=== PATIENT | male | born 1965 | race Caucasian/White ===

== ENCOUNTER 2018-07-25 08:19 | Emergency (ER) | payer MEDICARE ==
[2018-07-25] MEDS ORDERED: CLEOCIN300 MG PO (08:37)
[2018-07-25] MEDS ORDERED: TORADOL PO (08:37)
[2018-07-25 08:54] VITALS: BP 141/93
== END 2018-07-25 08:55 | disposition home or self-care (01) ==
LOC: ED 08:19
DX: L02.12 Furuncle of neck (principal); E11.9 Type 2 diabetes mellitus without complications; B95.61 Methicillin susceptible Staphylococcus aureus infection as the cause of diseases classified elsewhere

== ENCOUNTER 2019-12-04 15:53 | Emergency (ER) | payer MEDICARE ==
[~2019-12-04 15:53] MED LIST: CLEOCIN300 MG PO; TORADOL PO
[2019-12-04 15:56] VITALS: BP 127/88
[2019-12-04] MEDS ORDERED: KEFLEX500 M1 PO (16:24)
== END 2019-12-04 16:43 | disposition left against medical advice (07) ==
LOC: ED 15:53
DX: S90.425A Blister (nonthermal), left lesser toe(s), initial encounter (principal); L03.032 Cellulitis of left toe; E11.40 Type 2 diabetes mellitus with diabetic neuropathy, unspecified; X58.XXXA Exposure to other specified factors, initial encounter; Z91.19 Patient's noncompliance with other medical treatment and regimen

== ENCOUNTER 2020-01-16 | Emergency (ER) | payer MEDICARE ==
[~2020-01-16] MED LIST changes: +KEFLEX500 M1 PO
[2020-01-16 22:22] LABS: HEMATOCRIT 32.1 % (39.0-50.0); HEMOGLOBIN 9.9 g/dl (14.0-18.0); IMMATURE GRANULOCYTES 0.9 % (0.0-5.0); MEAN CELL VOLUME 77.3 fL CALC (80.0-100.0); MEAN CORPUSCULAR HGB 23.9 pG CALC (26.0-32.0); MEAN CORPUSCULAR HGB CONC 30.8 g/dL CAL (32.0-36.0); NEUT# 7.51 thou/uL (1.82-7.42); RED BLOOD COUNT 4.15 mill/uL (4.70-6.10); RED CELL DISTRI WIDTH 15.3 % (11.5-15.5)
[2020-01-16 22:28] LABS: URINE BILIRUBIN - DIPSTICK NEGATIVE (NEGATIVE); URINE BLOOD DIPSTICK SMALL (NEGATIVE); URINE COLOR YELLOW; URINE GLUCOSE - DIPSTICK >=1000 mg/dL (NEGATIVE); URINE KETONE NEGATIVE (NEGATIVE); URINE LEUK ESTERASE TRACE (NEGATIVE); URINE NITRITE - DIPSTICK NEGATIVE (Negative); URINE PROTEIN - DIPSTICK 100 mg/dL (NEG-TRACE); URINE UROBILINOGEN - DIPSTICK 0.2 E.U./dL (0.2)
[2020-01-16 22:31] LABS: BARBITURATES NEGATIVE (NEGATIVE); COCAINE NEGATIVE (NEGATIVE); METHADONE NEGATIVE (NEGATIVE); OXCYCODONE NEGATIVE (NEGATIVE); TETRAHYDROCANNABIONOL NEGATIVE (NEGATIVE); TRICYLIC ANTIDEPRESSANTS NEGATIVE (NEGATIVE)
[2020-01-16 22:44] LABS: URINE WBC 20-50 WBC/hpf (0-5)
[2020-01-16 22:47] LABS: ACT PARTIAL THROMBO TIME 30.1 SECONDS (20.0-32.5); PROTHROMBIN TIME 10.1 SECONDS (9.0-12.5)
[2020-01-16 22:56] LABS: ALBUMIN 3.8 g/dL (3.2-5.0); ALKALINE PHOSPHATASE 204 u/l (38-126); AMYLASE 33 u/l (30-110); ANION GAP 16 (6-22 (CALC)); BILIRUBIN, TOTAL 0.3 mg/dL (0.0-1.4); BUN 27 mg/dL (9-20); BUN/CREATININE RATIO 28 (12-20 (CALC)); CARBON DIOXIDE 25 mmol/l (22-30); CHLORIDE 97 mmol/l (95-108); ETHYL ALCOHOL 0 mg/dl (0-30); GFR > 60 ML/MIN (>=60 (CALC)); GFR FOR AFR.AMER. > 60 ML/MIN (>=60 (CALC)); LIPASE 67 u/l (23-300); SGOT/AST 18 u/l (17-59); SODIUM 133 mmol/l (137-146); TOTAL PROTEIN 8.1 g/dL (6.3-8.2)
[2020-01-16 22:59] LABS: POTASSIUM 5.2 mmol/l (3.5-5.1)
[2020-01-17] MEDS ORDERED: CIPROFLOXACN500 MG PO (00:17)
== END 2020-01-17 00:25 | disposition home or self-care (01) ==
DX: E11.65 Type 2 diabetes mellitus with hyperglycemia (principal); N39.0 Urinary tract infection, site not specified; E11.40 Type 2 diabetes mellitus with diabetic neuropathy, unspecified; T38.3X6A Underdosing of insulin and oral hypoglycemic [antidiabetic] drugs, initial encounter; Z91.120 Patient's intentional underdosing of medication regimen due to financial hardship

== ENCOUNTER 2020-03-11 18:40 | Emergency (ER) | payer MEDICARE ==
[~2020-03-11 18:40] MED LIST changes: +CIPROFLOXACN500 MG PO
[2020-03-11 19:37] LABS: HEMATOCRIT 35.9 % (39.0-50.0); HEMOGLOBIN 11.5 g/dl (14.0-18.0); IMMATURE GRANULOCYTES 0.4 % (0.0-5.0); MEAN CELL VOLUME 76.9 fL CALC (80.0-100.0); MEAN CORPUSCULAR HGB 24.6 pG CALC (26.0-32.0); NEUT# 9.92 thou/uL (1.82-7.42); RED BLOOD COUNT 4.67 mill/uL (4.70-6.10); RED CELL DISTRI WIDTH 17.1 % (11.5-15.5); URINE BILIRUBIN - DIPSTICK NEGATIVE (NEGATIVE); URINE BLOOD DIPSTICK LARGE (NEGATIVE); URINE COLOR YELLOW; URINE GLUCOSE - DIPSTICK >=1000 mg/dL (NEGATIVE); URINE KETONE NEGATIVE (NEGATIVE); URINE NITRITE - DIPSTICK NEGATIVE (Negative); URINE PROTEIN - DIPSTICK 100 mg/dL (NEG-TRACE); URINE UROBILINOGEN - DIPSTICK 0.2 E.U./dL (0.2)
[2020-03-11] MEDS ORDERED: TRESIBA100 UNIT/M SC (19:43)
[2020-03-11 19:54] LABS: URINE LEUK ESTERASE SMALL (NEGATIVE)
[2020-03-11 19:55] LABS: URINE RBC TNTC RBC/hpf (0-5); URINE SQUAMOUS EPITHELIAL CELL FEW EPI/hpf (0-FEW)
[2020-03-11 19:59] LABS: ALBUMIN 3.6 g/dL (3.2-5.0); ALKALINE PHOSPHATASE 167 u/l (38-126); ANION GAP 11 (6-22 (CALC)); BILIRUBIN, TOTAL 0.3 mg/dL (0.0-1.4); BUN 16 mg/dL (9-20); BUN/CREATININE RATIO 17 (12-20 (CALC)); CARBON DIOXIDE 28 mmol/l (22-30); CHLORIDE 94 mmol/l (95-108); CREATININE 0.9 mg/dL (0.7-1.3); GFR > 60 ML/MIN (>=60 (CALC)); GFR FOR AFR.AMER. > 60 ML/MIN (>=60 (CALC)); POTASSIUM 4.5 mmol/l (3.5-5.1); SODIUM 128 mmol/l (137-146); TOTAL PROTEIN 7.3 g/dL (6.3-8.2)
[2020-03-11 20:05] LABS: MYOGLOBIN 27 ng/mL (0 - 121)
[2020-03-11 20:11] LABS: SGOT/AST 34 u/l (17-59)
[2020-03-11] MEDS ORDERED: CIPROFLOXACN500 MG PO (20:59)
[2020-03-11 21:11] VITALS: BP 141/79
== END 2020-03-11 21:20 | disposition left against medical advice (07) ==
LOC: ED 18:40
PROVIDERS: Emergency Medicine
DX: E11.65 Type 2 diabetes mellitus with hyperglycemia (principal); E11.00 Type 2 diabetes mellitus with hyperosmolarity without nonketotic hyperglycemic-hyperosmolar coma (NKHHC); E11.40 Type 2 diabetes mellitus with diabetic neuropathy, unspecified; Z91.19 Patient's noncompliance with other medical treatment and regimen; Z79.4 Long term (current) use of insulin

== ENCOUNTER 2020-04-27 21:54 | Inpatient (IN) | payer MEDICARE ==
[~2020-04-27] VITALS: Ht 175.3 cm; Wt 75.9 kg
[~2020-04-27 21:54] MED LIST changes: +TRESIBA100 UNIT/M SC
--- NOTE | 2020-04-27 22:00 | NUR ---
PATIENT IMMEDIATELY TO TREATMENT ROOM 9 BY WHEELCHAIR, PATIENT APPEARS UNCOMFORTABLE, NO S/S OF DISTRESS.
[2020-04-27 23:13] LABS: IMMATURE GRANULOCYTES 0.6 % (0.0-5.0); MEAN CELL VOLUME 77.2 fL CALC (80.0-100.0); MEAN CORPUSCULAR HGB 24.7 pG CALC (26.0-32.0); MEAN CORPUSCULAR HGB CONC 32.1 g/dL CAL (32.0-36.0); NEUT# 11.48 thou/uL (1.82-7.42); RED BLOOD COUNT 3.72 mill/uL (4.70-6.10); RED CELL DISTRI WIDTH 15.5 % (11.5-15.5)
[2020-04-27 23:14] LABS: HEMATOCRIT 28.7 % (39.0-50.0); HEMOGLOBIN 9.2 g/dl (14.0-18.0)
--- NOTE | 2020-04-27 23:17 | NUR ---
ABT TREATMENT STATED, PATIENT RESTING QUIETLY, C/O CONTINUED PAIN IN EXTREMITY, NO S/S OF DISTRESS, RESPIRATIONS EVEN AND UNLABORED, CALL LIGHT WITHIN REACH.
[2020-04-27 23:34] LABS: ALBUMIN 3.6 g/dL (3.2-5.0); ALKALINE PHOSPHATASE 126 u/l (38-126); ANION GAP 13 (6-22 (CALC)); BILIRUBIN, TOTAL 0.3 mg/dL (0.0-1.4); BUN 22 mg/dL (9-20); BUN/CREATININE RATIO 16 (12-20 (CALC)); CARBON DIOXIDE 27 mmol/l (22-30); CHLORIDE 95 mmol/l (95-108); CREATININE 1.4 mg/dL (0.7-1.3); GFR 53 ML/MIN (>=60 (CALC)); GFR FOR AFR.AMER. > 60 ML/MIN (>=60 (CALC)); POTASSIUM 4.2 mmol/l (3.5-5.1); SGOT/AST 16 u/l (17-59); SODIUM 131 mmol/l (137-146); TOTAL PROTEIN 7.2 g/dL (6.3-8.2)
--- NOTE | 2020-04-28 00:05 | NUR ---
PATIENT UNABLE TO PROVIDE URINE SAMPLE AT THIS TIME.
--- NOTE | 2020-04-28 00:50 | NUR ---
RESTING QUIETLY, AWAITING INPATIENT ROOM ASSIGNMENT.
--- NOTE | 2020-04-28 01:52 | NUR ---
HAND OFF REPORT GIVEN TO SYED, PATIENT TO TREATMENT ROOM BY WHEELCHAIR.
[2020-04-28 02:15] VITALS: BP 145/83
--- NOTE | 2020-04-28 02:15 | NUR ---
PT ARIVED TO THE FLOOR VIA STRETCHER, ACCOMPANIED BY ED STAFF. PT ALERT AND ORIENTED. RESPIRATIONS EVEN AND UNLABORED ON RA. LUNGS SOUND CLEAR. PEDAL PULSES ARE WE. LEFT FOOT SWOLLEN, RED, AND WARM TO TOUCH, SCABS NOTED TO THE SECOND TOE. PT PROVIDED WITH ICE WATER AND ORIENTED TO ROOM AND CALL GUILLEN SYSTE. SAEFTY PRECAUTIONSIN PLACE. WILL CONTINUE TO MONITOR
[2020-04-28 07:56] VITALS: BP 115/65
--- NOTE | 2020-04-28 07:56 | NUR ---
PT RESTING IN BED, NO SIGNS OF DISTRESS NOTED, RESP EVEN AND UNLABORED. PT ALERT AND ORIENTED X3, DISCUSSED POC, NOTED EDEMA TO RLE. PT VOICES NO NEEDS OR COMPLAINTS AT THIS TIME. CALL LIGHT IN REACH,CONTINUE TO MONITOR.
--- NOTE | 2020-04-28 12:15 | NUR ---
PT RESTING IN BED WITH EYES CLOSED, EASILY AROUSED TO VERBAL STIMULI, PT GIVEN LUNCH TRAY, PT VOICES NO NEEDS OR COMPLAINTS AT THIS TIME, CALL LIGHT IN REACH,CONTINUE TO MONITOR.
--- NOTE | 2020-04-28 14:39 | NUR ---
PT PRESENTS WITH DIABETIC FOOT INFX/CELLULITIS. VANCOMYCIN ORDERED FOR PHARMACY TO DOSE. INITIATE VANCOMYCIN 750MG IV Q12H @ 0300 AND 1500. DRAW VANCO TROUGH 30 MIN B4 4TH DOSE ON 04/30 @ 0300. GOAL TROUGH = 10-15 MCG/ML. PHARMACY WILL CONTINUE TO FOLLOW.
[2020-04-28 15:55] VITALS: BP 131/74
--- NOTE | 2020-04-28 16:14 | NUR ---
PT RESTING IN BED NO SIGNS OF DISTRESS NOTED, RESP EVEN AND UNLABORED. IV VANCO INFUSING. PT VOICES NO NEEDS OR COMPLAINTS AT THIS TIME. CALL LIGHT IN REACH,CONTINUE TO MONITOR.
[2020-04-28 18:55] VITALS: BP 138/81
--- NOTE | 2020-04-28 21:30 | NUR ---
PT RESTING IN BED ALERT AND ORIENTED. RESPIRATIONS EVEN AND UNLABORED ON RA. LUNGS SOUND CLEAR/DIMINISHED. PEDAL PULSES WEAK. PT DENIES ANY NEEDS AT THIS TIME. SAFETY PRECAUTIONSIN PLACE. WILL CONTINUE TO MONITOR.
--- NOTE | 2020-04-29 00:15 | NUR ---
PT RESTING IN BED. RESPIRATIONS EVEN AND UNLABORED ON RA. NO S.S OF DISTRESS AT THIS TIME. SAFETY PRECAUTIONSIN PLACE. WILL CONTINUE TO MONITOR.
[2020-04-29 03:56] VITALS: BP 154/79
--- NOTE | 2020-04-29 04:11 | NUR ---
PT RESTING IN BED. RESPIRATIONS EVEN AND UNLABORED ON RA. NO S.S OF DISTRESS AT THIS TIME. WILL CONTINUE TO MONITOR.
[2020-04-29 05:14] LABS: HEMATOCRIT 26.2 % (39.0-50.0); HEMOGLOBIN 8.2 g/dl (14.0-18.0); IMMATURE GRANULOCYTES 0.5 % (0.0-5.0); MEAN CELL VOLUME 78.7 fL CALC (80.0-100.0); MEAN CORPUSCULAR HGB 24.6 pG CALC (26.0-32.0); MEAN CORPUSCULAR HGB CONC 31.3 g/dL CAL (32.0-36.0); RED BLOOD COUNT 3.33 mill/uL (4.70-6.10); RED CELL DISTRI WIDTH 15.9 % (11.5-15.5)
[2020-04-29 05:44] LABS: ALKALINE PHOSPHATASE 132 u/l (38-126); ANION GAP 11 (6-22 (CALC)); BILIRUBIN, TOTAL 0.2 mg/dL (0.0-1.4); BUN 19 mg/dL (9-20); BUN/CREATININE RATIO 22 (12-20 (CALC)); CARBON DIOXIDE 27 mmol/l (22-30); CHLORIDE 102 mmol/l (95-108); CREATININE 0.9 mg/dL (0.7-1.3); GFR > 60 ML/MIN (>=60 (CALC)); GFR FOR AFR.AMER. > 60 ML/MIN (>=60 (CALC)); POTASSIUM 4.5 mmol/l (3.5-5.1); SGOT/AST 20 u/l (17-59); SODIUM 135 mmol/l (137-146); TOTAL PROTEIN 6.6 g/dL (6.3-8.2)
[2020-04-29 06:08] LABS: C-REACTIVE PROTEIN 12.6 mg/dL (0-0.9)
[2020-04-29 08:28] VITALS: BP 166/87
--- NOTE | 2020-04-29 08:28 | NUR ---
PT RESTING IN BED WITH EYES CLOSED, EASILY AROUSED TO VERBAL STIMULI, PT C/O BACK PAIN STATES HES HAD MULTIPLE BACK SURGERIES AND THE BED IS HURTING HIS BACK. VITALS OBTAINED BP ELEVATED WILL NOTIFY MD. NOTED EDEMA TO LLE HAS GONE DOWN SINCE YESTERDAY. PT DENIES PAIN TO LLE ONLY TO HIS BACK, DISCUSSED POC, ASSESSMENT COMPLETED, CALL LIGHT IN REACH,CONTINUE TO MONITOR.
--- NOTE | 2020-04-29 12:20 | NUR ---
PT RESTING IN BED, C/O PAIN 08/04, DISCUSSED LORTAB PER MD ORDERS, PT AGREES. PT MEDICATED AT THIS TIME. CALL LIGHT IN REACH,CONTINUE TO MONITOR.
--- NOTE | 2020-04-29 12:45 | NUR ---
ENTERED ROOM PT RESTING IN BED WITH EYES CLOSED, NO SIGNS OF DISTRESS NOTED, RESP EVEN AND UNLABORED. PT EASILY AROUSED TO VERBAL STIMULI, DISCUSSED JUDAH, PT AGREES. STATES PAIN IS MUCH BETTER 8/10, CALL LIGHT IN REACH,CONTINUE TO MONITOR.
[2020-04-29 15:00] VITALS: BP 126/68
--- NOTE | 2020-04-29 18:00 | NUR ---
pt resting in bed, vanco infusion complete, pt c/o pain, medicated per dec. call light in reach, continue to monitor.
[2020-04-29 19:00] VITALS: BP 134/72
--- NOTE | 2020-04-29 19:51 | NUR ---
pt in bed with eyes open and able to verbalize needs . continues on ABT therapy with no adverse side effects noted. Call light within reach and bed in lowest position.
--- NOTE | 2020-04-30 00:57 | NUR ---
pt in bed with eyes closed. no s/s of distress. medicated for pain and effective. Continent of b/b and uses BSC with no complications noted. IV in place with no s/s of infection/infiltration. Call light within reach and bed in lowest position. Will continue to observe pt.
[2020-04-30 04:15] VITALS: BP 148/87
--- NOTE | 2020-04-30 06:56 | NUR ---
PT IS ALERT AND ORIENTED AND ABLE TO VERBALZE NEEDS. MEDICATED THROUGHOUT THE NIGNT FOR PAIN IN LEFT GREAT TOE AND EFFECTIVE. IV TO RIGHT ARM IS INTACT NO S/S OF INFECTION/INFILTRATION. CONTINENT OF B/B AND AMBULATES TO TOILET WITH NOO COMPLICATIONS. GAIT AND BALANCE STEADY. CALL LIGHT WITHIN REACH AND BE DIN LOWEST POSITION. WILL CONTINUE TO OBSERVE
--- NOTE | 2020-04-30 08:00 | NUR ---
REPORT RECEIVED FROM TRINH TOMPKINS. PT SITTING UP IN BED EATING BREAKFAST; ALERT AND ORINTED. C/O 6/10 PAIN TO BACK, HIPS, AND LEGS. RESPIRATIONS EVEN AND UNLABORED ON ROOM AIR. ACCU CHECK 115. VSS. IV SITE APPEARS HEALTHY AND FLUSHES. PLAN OF CARE REVIEWED. PT ENCOURAGED TO VERBALIZE CONCERNS. STATES UNDERSTANDING. SAFETY MEASURES IN PLACE. CALL LIGHT WITHIN REACH.
[2020-04-30 08:17] VITALS: BP 136/83
--- NOTE | 2020-04-30 08:25 | NUR ---
S: BERNABE UMANA is a 55 M who presents with cellulitis. He has a history of diabetes and diabetic neuropathy. All medications in patient's chart were reviewed. O: VS: BP 136/83 mmHg, P 92 bpm, RR 20, T 97 F W 75.9 kg, HT 175.26 cm, Scr=0.9 mg/dl, CrCl= 65.5 ml/min A: Blood culture is pending. P: Patient is on cefepime HCl 2gm IV Q12H. Vancomycin ordered for pharmacy to dose. Pt had been receiving vancomycin 750mg iv q12h with goal trough 10-15 mcg/ml. Trough on 04/30 @ 0300 was 6 mcg/ml. Change to vancomycin 1250 IV Q12H. Vancomycin trough is drawn before the 4th dose on 05/02/2020 0030. Vancomycin goal trough is between 10-15 mcg/ml. Pharmacy will follow and or advise on antibiotics use as needed.
--- NOTE | 2020-04-30 08:30 | NUR ---
LORTAB GIVEN FOR PAIN ALONG WITH SCHEDULED LEVEMIR.
--- NOTE | 2020-04-30 11:34 | NUR ---
3 UNITS OF INSULIN GIVEN FOR BLOOD SUGAR OF 240. PT CONTINUES TO C/O MILD PAIN TO BACK AND HIPS. LEFT GREAT TOE SWOLLEN, RED, AND WARM; 2 + EDEMA TO LEFT FOOT. PT REPORTS THAT THE TOE HAS IMPROVED. NO REQUESTS OR CONCERNS AT THIS TIME. CALL LIGHT WITHIN REACH.
--- NOTE | 2020-04-30 12:10 | NUR ---
DR. CARLTON AT BEDSIDE.
--- NOTE | 2020-04-30 13:14 | NUR ---
VANCO INFUSING AT THIS TIME. LORTAB GIVEN FOR 6/10 BACK, HIP, AND BACK PAIN. PT RESTING WITH EYES CLOSED.
[2020-04-30 14:50] VITALS: BP 150/91
--- NOTE | 2020-04-30 18:09 | NUR ---
IV SITE TO RFA RED AND SWOLLEN; NO C/O DISCOMFORT FROM PT. SITE DC'D AND NEW SITE PLACED TO RW.
[2020-04-30 19:25] VITALS: BP 144/93
--- NOTE | 2020-04-30 19:59 | NUR ---
RECEIVED REPORT ON PT AND IN BED WITH EYES OPEN. ABLE TO MAKE NEEDS KNOWN. SKIN WARM TO TOUCH. NO RESPIRATORY DISTRESS NOTED. CASLL LIGHT WITHIN REACH. WILL CONTINUE TO OBSERVE.
[2020-05-01 03:35] VITALS: BP 140/79
[2020-05-01 05:48] LABS: HEMATOCRIT 26.2 % (39.0-50.0); HEMOGLOBIN 8.1 g/dl (14.0-18.0); IMMATURE GRANULOCYTES 0.7 % (0.0-5.0); MEAN CELL VOLUME 79.6 fL CALC (80.0-100.0); MEAN CORPUSCULAR HGB 24.6 pG CALC (26.0-32.0); MEAN CORPUSCULAR HGB CONC 30.9 g/dL CAL (32.0-36.0); NEUT# 9.11 thou/uL (1.82-7.42); RED BLOOD COUNT 3.29 mill/uL (4.70-6.10); RED CELL DISTRI WIDTH 15.9 % (11.5-15.5)
--- NOTE | 2020-05-01 06:19 | NUR ---
PT IN BED WITH EYES CLOSED. NO S/S OF DISTRESS. MEDICATED FOR PAIN AND EFFECTIVE. PT IS CONTINENT OF B/B AND STATED HIS ABDOMEN FELT HARD AND BLOATED. ASSESSED ABDOMEN AND DISTENDED AND FIRM AND BOWEL SOUNDS PRESENT IN ALL QUADRANTS. PT DENIES PASSING GAS. MOM GIVEN WITH NO RESULTS AT THIS TIME. PT DENIES ABDOMINAL DISCOMFORT. mEDICATD FOR BACK PAIN AND EFFECTIVE. CALL LIGHT WITHIN REACH AND BED IN LOWEST POSITION.
[2020-05-01 06:20] LABS: ALBUMIN 3.2 g/dL (3.2-5.0); ALKALINE PHOSPHATASE 147 u/l (38-126); ANION GAP 11 (6-22 (CALC)); BILIRUBIN, TOTAL 0.1 mg/dL (0.0-1.4); BUN 18 mg/dL (9-20); BUN/CREATININE RATIO 25 (12-20 (CALC)); C-REACTIVE PROTEIN 6.8 mg/dL (0-0.9); CARBON DIOXIDE 28 mmol/l (22-30); CHLORIDE 101 mmol/l (95-108); CREATININE 0.7 mg/dL (0.7-1.3); GFR > 60 ML/MIN (>=60 (CALC)); GFR FOR AFR.AMER. > 60 ML/MIN (>=60 (CALC)); POTASSIUM 4.9 mmol/l (3.5-5.1); SGOT/AST 30 u/l (17-59); SODIUM 135 mmol/l (137-146); TOTAL PROTEIN 6.7 g/dL (6.3-8.2)
[2020-05-01 07:43] VITALS: BP 157/87
--- NOTE | 2020-05-01 07:45 | NUR ---
REPORT RECEIVED FROM TRINH TOMPKINS. PT RESTING IN BED SUPINE WITH EYES CLOSED AND NO SIGNS OF DISTRESS. AWAKENS TO VERBAL STIMULI; ALERT AND ORIENTED. C/O 6/10 LOWER BACK PAIN; LORTAB GIVEN AT THIS TIME. RESPIRATIONS EVEN AND UNLABORED ON ROOM AIR; SPO2 97%. REMAINS ON AIRBORNE/CONTACT PRECAUTIONS FOR POSITIVE COVID SWAB RESULTS. BP 157/87; PT STATES HE THINKS HIS BP IS ELEVATED BECAUSE HE NEEDS TO HAVE A BOWEL MOVEMENT AND THE MILK OF MAG HE RECEIVED LAST NIGHT HAS NOT YET BEEN EFFECTIVE. PT ENCOURAGED TO AMBULATE AND OFFERED WARM PRUNE JUICE. PLAN OF CARE REVIEWED. PT ENCOURAGED TO VERBALIZE CONCERNS. STATES UNDERSTANDING. SAFETY MEASURES IN PLACE. CALL LIGHT WITHIN REACH.
--- NOTE | 2020-05-01 12:12 | NUR ---
DR CARLTON AT BEDSIDE.
--- NOTE | 2020-05-01 13:51 | NUR ---
RADIOLOGY REPORTS FOREIGN OBJEST IN LEFT GREAT TOE. PT ADVISED THAT THERE IS A NEEDLE LIKE OBJECT IN HIS LEFT GREAT TOE AND THAT DR FRANCOIS HAS BEEN CONSULTED.
[2020-05-01 14:30] VITALS: BP 140/78
--- NOTE | 2020-05-01 15:07 | NUR ---
DR. NARANJO AT [facility] BEDSIDE FOR HEMATOLOGY CONSULT.
--- NOTE | 2020-05-01 17:30 | NUR ---
IV INFILTRATED. DISCONTINUED iV AND PLACED A NEW 20 GAUGE IN THE RIGHT AC. VENOFER ADMINISTERED PER DR ALEJANDRA FOR A HEMOGLOBIN OF 8.1. PURNE JUICE PROVIDED FOR CONSTIPATION.
[2020-05-01 19:07] VITALS: BP 151/83
--- NOTE | 2020-05-02 00:43 | NUR ---
PT IN BED WITH EYES CLOSED. NO S/S OF DISTRESS. BLOOD GLUCOSE AT BEDTIME 433. STAT GLUCOSE DRAWN AND 10 UNITS NOVOLOG GIVEN. RECHECKED BLOOD GLUCOSE AND 351 AND STAT GLUCOSE LAB 361. RESIDENT DENIES ANY DISTRESS. VANCO TROUGH DUE THIS AM AND COLLECTED. PT IS CURENTLY NPO STATUS FOR PROCEDURE IN AM. IV SITE IS HEALTHY AND FREE OF S/S OF INFECTION/INFILTRATION. CALL LIGHT WITHIN REACH AND BED IN LOWEST POSITION.
[2020-05-02 04:49] VITALS: BP 132/65
--- NOTE | 2020-05-02 06:39 | NUR ---
PT IN BED WITH EYES CLOSED. ABLE TO VERBALIZE NEEDS. NOP SINCE MIDNIGHT FOR CONSULT WITH DR. FRANCOIS FOR POSSIBLE SURGERY TODAY. RESPIRATION ARE EVEN AND NON LABORED. CONTINENT OF B/B AND HAD MEDIUM MOWEL [id number] LAST EVENING. WILL CONTINUE TO OBSERVE.
[2020-05-02 08:00] VITALS: BP 149/78
--- NOTE | 2020-05-02 08:26 | NUR ---
S: BERNABE UMANA is a 55 M who presents with foot swelling and redness. He has a history of diabetes (doesn't take meds), neuropathy, and Hep C. All medications in patient's chart were reviewed. O: VS: BP 132/65 mmHg, P 86 bpm, RR 18 breaths/min, T 97.5 F W 75.892 kg, HT 175.26 cm, Scr= 0.7, CrCl= 131 ml/min A: Blood culture is still pending. P: Patient is on cefepime HCl 2gm IV Q12H. Vancomycin ordered for pharmacy to dose. Vancomycin trough level is 11 on May 02, 2020 Continue Vancomycin 1250 mg IV Q12H. Vancomycin trough is drawn before the 4th dose on 05/03/2020 1230. Vancomycin goal trough is between 10-15 mcg/ml. Pharmacy will follow and or advise on antibiotics use as needed.
--- NOTE | 2020-05-02 09:00 | NUR ---
PT SEEN AWAKE, ALERT, ORIENTED X 3, AMBULATORY IN ROOM. LUNGS HAVE CRACKLES IN THE BASES, WORSE ON LEFT, USING 1 LPM NC. NO ACUTE DISTRESS PT RESTS IN THE BED.
[2020-05-02 10:19] LABS: HEMATOCRIT 28.3 % (39.0-50.0); IMMATURE GRANULOCYTES 1.2 % (0.0-5.0); MEAN CORPUSCULAR HGB 24.8 pG CALC (26.0-32.0); MEAN CORPUSCULAR HGB CONC 31.8 g/dL CAL (32.0-36.0); NEUT# 11.47 thou/uL (1.82-7.42); RED BLOOD COUNT 3.63 mill/uL (4.70-6.10); RED CELL DISTRI WIDTH 15.6 % (11.5-15.5)
--- NOTE | 2020-05-02 14:03 | NUR ---
PT HAS GONE TO SURGERY THIS MORNING FOR REMOVAL OF NEEDLE SEEN IN RIGHT FOOT ON XRAY. PT HAS BEEN NPO SINCE LAST NIGHT. PT MEDICATED EARLIER FOR BACK PAIN.
[2020-05-02 14:51] VITALS: BP 169/80
[2020-05-02] MEDS ORDERED: AMOX/K CLAV875 M1 PO (16:23)
[2020-05-02] MEDS ORDERED: DOXYCYCL HYC100 MG PO (16:23)
--- NOTE | 2020-05-02 17:00 | NUR ---
PT WITH POST OP VITALS BEING DONE, RECEIVED LORTAB FOR PAIN RELIEF, THEN STATED THAT HE WANTED TO GO HOME NOW. HE WAS CONVINCED THAT HE NEEDED TO TAKE CARE OF THINGS AT HOME, COULD NOT STAND TO BE COOPED UP ANY MORE IN A HOSPITAL ROOM. PT SIGNED AMA PAPERS, RECEIVED DISCHARGE PAPERS THAT INCLUDED TWO PRESCRIPTIONS FOR ANTIBIOTICS, WAS TAKEN TO LOBBY WHERE REGISTRATION CALLED A TAXI FOR HIM. HE HAD MONEY TO PAY FOR IT. PT VERBALIZED UNDERSTANDING OF DC INSTRUCTIONS, WAS ENCOURAGED TO FOLLOW UP WITH HIS DOCTOR AND WOUND CARE DOCTOR, WELL TO SELF ISOLATE FOR 14 DAYS PER POSITIVE COVID FINDING.
== END 2020-05-02 16:48 | disposition left against medical advice (07) | DRG 637 ==
LOC: ED 21:54 → ED-I 23:46 → ED 04-28 00:07 → ED-I 04-28 00:08 → MS2 04-28 01:53
PROVIDERS: Family Medicine; Internal Medicine Hematology & Oncology; ADMIT Internal Medicine; ATTEND Internal Medicine
PROC: 0H9NXZZ Drainage of Left Foot Skin, External Approach (ICD-10-PCS; principal; 2020-05-02)
DX: E11.628 Type 2 diabetes mellitus with other skin complications (principal); U07.1 COVID-19; L02.612 Cutaneous abscess of left foot; M79.5 Residual foreign body in soft tissue; E11.65 Type 2 diabetes mellitus with hyperglycemia; E11.42 Type 2 diabetes mellitus with diabetic polyneuropathy; M54.9 Dorsalgia, unspecified; G89.29 Other chronic pain; D50.9 Iron deficiency anemia, unspecified; S90.425A Blister (nonthermal), left lesser toe(s), initial encounter; X58.XXXA Exposure to other specified factors, initial encounter; Z90.81 Acquired absence of spleen; Z79.4 Long term (current) use of insulin
CPT/HCPCS: J0692; J1650; J1756; J3370

== ENCOUNTER 2020-05-18 16:36 | Emergency (ER) | payer MEDICARE ==
[~2020-05-18] VITALS: Ht 175.3 cm; Wt 90.0 kg
[~2020-05-18 16:36] MED LIST changes: +AMOX/K CLAV875 M1 PO; +DOXYCYCL HYC100 MG PO
[2020-05-18 17:11] LABS: HEMATOCRIT 33.3 % (39.0-50.0); HEMOGLOBIN 10.2 g/dl (14.0-18.0); IMMATURE GRANULOCYTES 0.6 % (0.0-5.0); MEAN CELL VOLUME 78.7 fL CALC (80.0-100.0); MEAN CORPUSCULAR HGB 24.1 pG CALC (26.0-32.0); MEAN CORPUSCULAR HGB CONC 30.6 g/dL CAL (32.0-36.0); NEUT# 3.19 thou/uL (1.82-7.42); RED BLOOD COUNT 4.23 mill/uL (4.70-6.10); RED CELL DISTRI WIDTH 17.1 % (11.5-15.5)
[2020-05-18 17:24] LABS: BUN 42 mg/dL (9-20); BUN/CREATININE RATIO 40 (12-20 (CALC)); CHLORIDE 106 mmol/l (95-108); CREATININE 1.1 mg/dL (0.7-1.3); GFR > 60 ML/MIN (>=60 (CALC)); GFR FOR AFR.AMER. > 60 ML/MIN (>=60 (CALC)); SODIUM 134 mmol/l (137-146)
[2020-05-18 17:25] LABS: ANION GAP 13 (6-22 (CALC)); CARBON DIOXIDE 20 mmol/l (22-30); POTASSIUM 5.4 mmol/l (3.5-5.1)
[2020-05-18 18:26] VITALS: BP 158/86
== END 2020-05-18 18:42 | disposition home or self-care (01) ==
LOC: ED 16:36
PROVIDERS: Student in an Organized Health Care Education/Training Program
DX: R55 Syncope and collapse (principal); E11.65 Type 2 diabetes mellitus with hyperglycemia; E11.40 Type 2 diabetes mellitus with diabetic neuropathy, unspecified; M54.6 Pain in thoracic spine; W18.39XA Other fall on same level, initial encounter; Y93.E1 Activity, personal bathing and showering; Y92.002 Bathroom of unspecified non-institutional (private) residence as the place of occurrence of the external cause

== ENCOUNTER 2020-06-03 20:26 | Emergency (ER) | payer MEDICARE ==
[~2020-06-03] VITALS: Ht 175.3 cm; Wt 77.0 kg
[2020-06-03] MEDS ORDERED: AUGMENTIN500TAB PO (21:22)
[2020-06-03] MEDS ORDERED: LEVEMIR FL100 UNIT/M SC (21:36)
[2020-06-03 21:53] VITALS: BP 132/94
== END 2020-06-03 21:54 | disposition left against medical advice (07) ==
LOC: ED 20:26
DX: E11.628 Type 2 diabetes mellitus with other skin complications (principal); L03.116 Cellulitis of left lower limb; E11.621 Type 2 diabetes mellitus with foot ulcer; L97.429 Non-pressure chronic ulcer of left heel and midfoot with unspecified severity; E11.42 Type 2 diabetes mellitus with diabetic polyneuropathy; B19.20 Unspecified viral hepatitis C without hepatic coma; Z91.19 Patient's noncompliance with other medical treatment and regimen

== ENCOUNTER 2020-06-04 09:22 | Inpatient (IN) | payer MEDICARE ==
[~2020-06-04] VITALS: Ht 175.3 cm; Wt 77.0 kg
[~2020-06-04 09:22] MED LIST changes: +AUGMENTIN500TAB PO; +LEVEMIR FL100 UNIT/M SC
--- NOTE | 2020-06-04 09:32 | NUR ---
PT AMBULATED TO RM 15 WITH STEADY GAIT. REFUSED W/C OFFER. B/S TRIAGE COMPLETED.
[2020-06-04 10:45] LABS: HEMATOCRIT 28.2 % (39.0-50.0); HEMOGLOBIN 8.8 g/dl (14.0-18.0); IMMATURE GRANULOCYTES 0.8 % (0.0-5.0); MEAN CELL VOLUME 79.4 fL CALC (80.0-100.0); MEAN CORPUSCULAR HGB 24.8 pG CALC (26.0-32.0); MEAN CORPUSCULAR HGB CONC 31.2 g/dL CAL (32.0-36.0); NEUT# 19.1 thou/uL (1.82-7.42); RED BLOOD COUNT 3.55 mill/uL (4.70-6.10); RED CELL DISTRI WIDTH 16.6 % (11.5-15.5)
[2020-06-04 11:11] LABS: ALBUMIN 3.7 g/dL (3.2-5.0); BUN 21 mg/dL (9-20); BUN/CREATININE RATIO 19 (12-20 (CALC)); CHLORIDE 95 mmol/l (95-108); CPK 56 u/l (52-200); CREATININE 1.1 mg/dL (0.7-1.3); GFR > 60 ML/MIN (>=60 (CALC)); GFR FOR AFR.AMER. > 60 ML/MIN (>=60 (CALC)); MAGNESIUM 2.1 mg/dL (1.6-2.3); SGOT/AST 35 u/l (17-59); SODIUM 129 mmol/l (137-146)
[2020-06-04 11:17] LABS: ALKALINE PHOSPHATASE 263 u/l (38-126); ANION GAP 12 (6-22 (CALC)); BILIRUBIN, TOTAL 0.6 mg/dL (0.0-1.4); CARBON DIOXIDE 26 mmol/l (22-30); POTASSIUM 4.1 mmol/l (3.5-5.1)
--- NOTE | 2020-06-04 11:38 | NUR ---
SBAR PRINTED TO FLOOR
--- NOTE | 2020-06-04 13:00 | NUR ---
THE PATIENT IS WAITING FOR ADMISSION
[2020-06-04 16:04] VITALS: BP 125/72
--- NOTE | 2020-06-04 16:04 | NUR ---
PT ARRIVED TO MED/SURG ROOM 290 IN STABLE CONDITION VIA WHEELCHAIR ACCOMPANIED BY ER NURSE;PT AMBULATED TO BEDSIDE WITH A STEADY GAIT;PT A&O X3,ORIENTED TO ROOM AND CALL LIGHT SYSTEM;PT REPORTS INCREASED PAIN AND SWELLING TO LLE X3 DAYS, WAS PREVIOUSLY IN [facility] ER AND LEFT AGAINST MEDICAL ADVICE;VS AND WT OBTAINED AT THIS TIME;PT REPORTS PAIN HAS DECREASED SINCE PAIN MEDICATION ADMINISTRATION IN ER NOW 6/10 ON THE PAIN SCALE,PAIN SCALE AND REPORTING EDUCATED;RESPIRATIONS EVEN AND UNLABORED ON RA,CLEAR LUNG SOUNDS;ABDOMEN SOFT ON PALPATION AND ACTIVE IN ALL 4 QUADRANTS,LAST BM 06/03/20;WEAK PEDAL PULSES;EDEMA TO LEFT FOOT NOTED WITH REDDENING,ENCOURAGED ELEVATION;SKIN INTACT;#20G TO LAC FLUSHED AND PATENT,NS STARTED @ 75ML/HR PER ORDER;PT DENIES ANY ADDITIONAL NEEDS AT THIS TIME AND IS ENCOURAGED TO CALL FOR ASSISTANCE IF NEEDED;PT REMAINS IN AIR/COMTACT PRECAUTIONS DUE TO COVID19 DX;CALL LIGHT IN REACH;WILL CONTINUE TO MONITOR
--- NOTE | 2020-06-04 17:03 | NUR ---
ACCUCHECK 54, ORANGE JUICE AND SNACKS PROVIDED;PT ASYMPTOMATIC, ENCOURAGED TO CALL FOR ASISSTANCE IF NEEDED;WILL CONTINUE TO MONITOR AND RE-ASSESS BLOOD SUGAR.
--- NOTE | 2020-06-04 18:00 | NUR ---
PT RESTING IN SEMI FOWLERS POSITION;RESPIRATIONS EVEN AND UNLABORED ON RA;PT DENIES ANY CURRENT NEEDS;IV FLUIDS INFUSING WITH EASE AND ABX HUNG AT THIS TIME;ACCUCHECK RE-CHECK 76, PT REMAINS SYMPTOMATIC;PT DENIES ANY ADDITIONAL NEEDS AND IS ENCOURAGED TO CALL FOR ASSISTANCE IF NEEDED;CALL LIGHT IN REACH;WILL CONTINUE TO MONITOR
--- NOTE | 2020-06-04 18:30 | NUR ---
RT AT BEDSIDE OBTAINING EKG.
[2020-06-04 19:23] VITALS: BP 140/75
--- NOTE | 2020-06-04 20:25 | NUR ---
LAB UP TO OBTAIN LACTIC ACID PREVIOUSLY ORDERED IN ED
[2020-06-04 22:00] VITALS: BP 137/67
[2020-06-05] VITALS (11 sets, daily range): BP systolic 108–161; BP diastolic 43–84
--- NOTE | 2020-06-05 02:55 | NUR ---
PT MEDICATED FOR PAIN AT THIS TIME. PT C/O PAIN IN LOWER ABD, REPORTED HAVING DIFFICULTY URINATING FOR THE LAST 3 WEEKS. HE STATED HE FELL A MONTH AGO AND HIT HIS BACK WHERE HIS KIDNEY IS, CAME TO ED WHERE THEY DID SCANS OF KIDNEYS AND DID NOT FIND ANYTHING" BUT HE THINKS THAT IS HIS PROBLEM. 400CC OF URINE IS IN URINAL AT THIS TIME IN RESTROOM AND YELLOW URINE VISUALIZED IN TOILET. HEAVY EQUIPMENT RENTAL ASSOCIATE FLUSHED AND PLACE A NEW URINAL AT BEDSIDE AND INSTRUCTED PT TO SAVE ANY URINE IN URINAL AND NOT TO USE THE TOILET FOR URINATING. PT VERBALIZED UNDERSTANDING AND DENIES BEING CONSTIPATED STATING HE HAS NOT BEEN HAVING DIFFICULTIES WITH THAT.
--- NOTE | 2020-06-05 02:57 | NUR ---
PT PROIVDED SNACK AND DIET COKE PER REQUEST AND FRESH ICE. PICTURE TAKEN OF SANTOS AND LINE DRAWN TO KONSTANTIN REDNESS.
[2020-06-05 05:45] LABS: HEMATOCRIT 24.8 % (39.0-50.0); HEMOGLOBIN 7.8 g/dl (14.0-18.0); IMMATURE GRANULOCYTES 0.8 % (0.0-5.0); MEAN CORPUSCULAR HGB 24.8 pG CALC (26.0-32.0); MEAN CORPUSCULAR HGB CONC 31.5 g/dL CAL (32.0-36.0); NEUT# 22.32 thou/uL (1.82-7.42); RED BLOOD COUNT 3.14 mill/uL (4.70-6.10); RED CELL DISTRI WIDTH 16.8 % (11.5-15.5)
[2020-06-05 06:17] LABS: ALKALINE PHOSPHATASE 313 u/l (38-126); ANION GAP 15 (6-22 (CALC)); BILIRUBIN, TOTAL 0.8 mg/dL (0.0-1.4); BUN 20 mg/dL (9-20); BUN/CREATININE RATIO 16 (12-20 (CALC)); CARBON DIOXIDE 21 mmol/l (22-30); CHLORIDE 98 mmol/l (95-108); CREATININE 1.2 mg/dL (0.7-1.3); GFR > 60 ML/MIN (>=60 (CALC)); GFR FOR AFR.AMER. > 60 ML/MIN (>=60 (CALC)); POTASSIUM 4.7 mmol/l (3.5-5.1); SGOT/AST 33 u/l (17-59); SODIUM 129 mmol/l (137-146)
[2020-06-05 06:23] LABS: ALBUMIN 2.8 g/dL (3.2-5.0); TOTAL PROTEIN 6.3 g/dL (6.3-8.2)
--- NOTE | 2020-06-05 06:23 | NUR ---
PT MEDICATED W/IV ANTIBIOTIC THERAPY. NO S/O DISTRESS. PT WAS SLEEPING SOUNDLY WHEN I ENTERED THE ROOM. AIDE IN W/PT
--- NOTE | 2020-06-05 07:15 | NUR ---
REPORT RECEIVED FROM TRINH RANGEL.
--- NOTE | 2020-06-05 08:20 | NUR ---
PT RESTING IN SEMI FOWLERS POSITION,A&O X3;VS OBTAINED AND ASSESSMENT COMPLETED;PT REPORTS LLE AND ABDOMINAL PAIN RATING 7/10 ON THE PAIN SCALE AND REQUESTS PAIN MEDICATION,PT MEDICATED WITH PRN MORPHINE 2MG IVP AT THIS TIME;RESPIRATIONS EVEN AND UNLABORED ON RA,CLEAR LUNG SOUNDS;ABDOMEN DISTENDED/SOFT ON PALPATION AND ACTIVE IN ALL 4 QUADRANTS;WEAK PEDAL PULSES;REDDENING ANF EDEMA NOTED TO LLE, PT SCHEDULED TO GO TO OR THIS EVENING WITH ;SKIN INTACT;#20G TO LAC INFUSING NS @75 ML/HR,SITE APPEARS HEALTHY;NPO DIET REINFORCED AFTER DINNER PER MD;PT DENIES ANY ADDITIONAL NEEDS AT THIS TIME AND IS ENCOURAGED TO CALL FOR ASSISTANCE IF NEEDED;FALL PRECAUTIONS IN PLACE WITH BED IN THE LOWEST POSITION AND CALL LIGHT IN REACH;WILL CONTINUE TO MONITOR
--- NOTE | 2020-06-05 08:56 | NUR ---
INFORMED CONSENT OBTAINED FOR CHIN CATHETER INSERTION.
--- NOTE | 2020-06-05 09:35 | NUR ---
PT REPORTS INABILITY TO VOID, BLADDER SCAN OBTAINED RESULTING IN 489;MD NOTIFIED AND NEW ORDERS RECEIVED;WILL CONTINUE TO MONITOR
--- NOTE | 2020-06-05 09:38 | NUR ---
#16F CHIN CATHETER INSERTED BY TRINH THOMAS.
--- NOTE | 2020-06-05 11:52 | NUR ---
PHYSICAL THERAPY AT BEDSIDE
--- NOTE | 2020-06-05 12:00 | NUR ---
PT RESTING IN SEMI FOWLERS POSITION;RESPIRATIONS EVEN AND UNLABORED ON RA;PT CONTINUES TO REPOT LOWER ABDOMINAL DISCOMFORT BUT REPORTS IT HAS DECREASED SINCE CHIN INSERION;CHIN CATHETER CONTINUES TO DRAIN TO GRAVITY WITH EASE;IV FLUIDS PATENT AND ABX STARTED AT THIS TIME;ACCUCHECK 177,PT COVERED WITH SLIDING SCALE NOVOLOG PER ORDER;NO DIET REINFORCED AND PT VERBALIZES UNDERSTANDING;ENCOURAGED TO CALL FOR ASSISTANCE IF NEEDED;CALL LIGHT IN REACH;WILL CONTINUE TO MONITOR
--- NOTE | 2020-06-05 13:36 | NUR ---
S: BERNABE UMANA is a 55 M who presents with cellulitis. He has a history of diabetes (dosn't take meds), and neuropathy Hep C. All medications in patient's chart were reviewed. O: VS: BP 108/59 mmHg, P 97 bpm, RR 18 breaths/min, T 98.9 F W 77 kg, HT 175.26 cm, Scr= 1.2 mg/dL, CrCl= 77.6 ml/min A: Blood culture is pending. P: Patient is on Zosyn 3.375g IV Q6H. Vancomycin ordered for pharmacy to dose. Start Vancomycin 1g IV Q12H. Vancomycin trough is drawn before the 4th dose on 06/06/2020 0930. Vancomycin goal trough is between 10-15 mcg/ml. Pharmacy will follow and or advise on antibiotics use as needed.
--- NOTE | 2020-06-05 15:20 | NUR ---
PT APPEARS TO BE SLEEPING IN SEMI FOWLERS POSITION,WAKES EASILY TO VERBAL STIMULI;RESPIRATIONS EVEN AND UNLABORED ON RA;PT DENIES ANY CURRENT PAIN OR NEEDS;IV FLUIDS CONTINUE TO INFUSE TO LAC WITH EASE @ 75ML/HR;CHIN CATHETER PATENT DRAINING CLEAR/YELLOW URINE;PT EDUCATED ON RESP PANEL RESULTS AND HOW AFTER SCHEDULED SX HIS ROOM WOULD BE MOVED OUT OF ISOLATION,PT VERBALIZES UNDERSTANDING;OR TO PICK PT UP AT APPROX 1630;PT DENIES ANY ADDITIONAL QUESTIONS OR NEEDS;ENCOURAGED TO CALL FOR ASSISTANCE IF NEEDED;CALL LIGHT IN REACH;WILL CONTINUE TO MONITOR
--- NOTE | 2020-06-05 15:41 | NUR ---
PT TRANSPORTED TO OR IN STABLE CONDITION VIA STRETCHER ACCOMPANIED BY MESFIN RN
--- NOTE | 2020-06-05 20:00 | NUR ---
PATIENT ARRIVED TO FLOOR AT THIS TIME, S/P REMOVAL OF FORIEIGN BODY ON LEFT FOOT, PATIENT WAS TRANSPORTED VIA BED, AWAKE, DENIES PAIN AND NOT IN DISTRESS PATIENT RT LEG HOOKE TO ICD MACHINE, COMFORTABLY RESTING IN BED V/S FOLLOWS: bP 131/69 P 102 R 20, CALL LIGHT AT REACH.
--- NOTE | 2020-06-05 23:20 | NUR ---
PATIENT RESTING IN BED WITH EYES CLOSED, BREATHING EVEN UNLABORED CALL LIGHT AT REACH.
[2020-06-06] VITALS (7 sets, daily range): BP systolic 104–127; BP diastolic 60–69
--- NOTE | 2020-06-06 02:04 | NUR ---
COLD PACKS APPLIED TO AXILLARY AND WASH CLOTH ON FOREHEAD
--- NOTE | 2020-06-06 03:54 | NUR ---
PATIENT AWAKE AT THIS TIME, SNACKS PROVIDED, OCCASIONAL COUGH NOTED NON PRODUCTIVE CALL LIGHT AT REACH.
[2020-06-06 05:59] LABS: HEMATOCRIT 22.1 % (39.0-50.0); MEAN CELL VOLUME 80.4 fL CALC (80.0-100.0); MEAN CORPUSCULAR HGB 24.7 pG CALC (26.0-32.0); MEAN CORPUSCULAR HGB CONC 30.8 g/dL CAL (32.0-36.0); RED BLOOD COUNT 2.75 mill/uL (4.70-6.10); RED CELL DISTRI WIDTH 17.4 % (11.5-15.5)
[2020-06-06 06:24] LABS: ANION GAP 14 (6-22 (CALC)); BUN 17 mg/dL (9-20); BUN/CREATININE RATIO 14 (12-20 (CALC)); CARBON DIOXIDE 17 mmol/l (22-30); CHLORIDE 103 mmol/l (95-108); CREATININE 1.2 mg/dL (0.7-1.3); GFR > 60 ML/MIN (>=60 (CALC)); GFR FOR AFR.AMER. > 60 ML/MIN (>=60 (CALC)); POTASSIUM 4.2 mmol/l (3.5-5.1); SODIUM 130 mmol/l (137-146)
[2020-06-06 06:27] LABS: HEMOGLOBIN 6.8 g/dl (14.0-18.0)
--- NOTE | 2020-06-06 06:50 | NUR ---
RECEIVED A PHONE CALL CALL FROM LAB , CRITICALLY LOW HEMOGLOBIN, CALLED DR. SWANSON AT 0635 AND ORDERED TO TRANSFUSE #1 UNIT OF PRBC TYPE AND SCREEN, CONSENT SECURED.
--- NOTE | 2020-06-06 07:40 | NUR ---
RECIEVED REPORT FROM TRINH CASH. PT RESTING IN SEMI FOWLERS POTIION UPON ENTERING ROOM. INTRODUCED SELF TO PT AND DISCUSSED POC. ASSESSMENT AND VITALS COMPLETED A THIS TIME. RESPIRTAIONS ARE EVEN AND UNLABORED WIHT NO SIGNS OF DSITRESS. LUNG SOUNDS ARE CLEAR. HEART RHYTHM IS NORMAL . BOWEL SOUNDS ARE ACTIVE IN ALL QUADRANTS EITH NO TENDERNESS. RADIAL AND RIGHT PEDAL PULSE STRONG WITH NORMAL CAPILLARY REFILL. UNABLE TO PALPATE LEFT PEDAL PULSE DUE TO DRESSING FROM I&D O06/05/20.DRESSING IS CDI AT THIS TIME. #20 IN LAC RUNNING WITH NS AT 75 ORDERED, SITE APPEARS HEALTHY AND PATENT. PT DENIES ANY PAIN OR DISCOMFORTS AT THIS TIME TIME.ALL SAFETY PRECAUTIONS ARE IN PLACE WITH CALL LIGHT IN REACH. WILL CONTINUE TO MONITOR.
--- NOTE | 2020-06-06 10:07 | NUR ---
PT COMPLAINS OF 7/10 PAIN IN LEFT FOOT AND BACK, MORPHINE TO BE ADMINISTERED. RESPIRTAIONS ARE EVEN AND UNLABORED WITH NO SIGNS OF DSITRESS. ALL SAFETY PRECAUTIONS ARE IN PLACE WITH CALL LIGHT IN REACH
--- NOTE | 2020-06-06 10:09 | NUR ---
UNIT OF PACKED RBS STARTED AT THIS TIME. PT NOTIFIED OF S/S OF BLOOD TRANSFUSION REACTION. PT VERBALIZED UNDERSTANDING. MARSHAWHEANEEMA REMAINING IN ROOM TO MONITOR PT. RESPIRATIONS ARE EVEN AND UNLABORED WITH NO SIGNS OF DISTRESS. ALL SAFETY PRECAUTIONS ARE IN REACH WITH CALL LIGHT IN REACH. WILL CONTINUE TO MONITOR
--- NOTE | 2020-06-06 10:20 | NUR ---
PACKED RBC INFUSING WITH EASE. PT DENIES ANY S/S OF TRNSFUSION REACTION. PT RE/EDUCATED ON S/S OF TRANSFUSION REACTIONS. PT VERBALIZES UNDERSTADNING. RESPIRATIONS ARE EVEN AND UNLABORED WITH NO SIGNS OF DISTRESS. ALL SAFTEY PRECAUTIONS ARE IN PLACE WITH CALL LIGHT IN REACH. WILL CONTINUE TO MONITOR
--- NOTE | 2020-06-06 10:35 | NUR ---
REASSESSMENT OF PAIN AT THIS TIME. RESULTING IN 12/05. RESPIRTAIONS ARE EVEN AND UNLABROED WITH NO SIGNS OF DISTRESS. ALL SAFTEY PRECAUTIONS ARE IN PLACE WITH CALL LIGHT IN REACH. WILL CONTINUE TO MONITOR
--- NOTE | 2020-06-06 11:13 | NUR ---
PACKED RBC RUNNING WITH EASE. PT DENIES ANY S/S OF TRANSFUSION REACTION. PT RE-EDUCATED ON S/S OF TRANSACTION. PT VERBALIZES UNDERSTANDING. ALL SAFETY PRECAUTIONS ARE IN PLACE WITH CALL LIGHT IN REACH.W ILL CONTINUE TO MONITOR
--- NOTE | 2020-06-06 11:46 | NUR ---
REASSESSMENT OF BP AT THIS TIME RESULTING IN 155/76. RESPIRATIONS ARE EVEN AND UNLABORED WITH NO SIGNS OF DISTRESS. PT DENEIS ANY PAIN AT THIS TIME. DISCHARGE INSTRUCTIONS TO BE COMPLETED. ALL SAFETY PRECAUTIONS ARE IN PLACE WITH CALL LIGHT IN REACH AND AT BEDSIDE.WILL COTNINUE TO MONITOR
--- NOTE | 2020-06-06 12:11 | NUR ---
COMPLETION OF PACKED RBC AT THIS TIME. PT DENIES ANY S/S OF TRANSFUSION REACTION. RESPIRTAIONS ARE EVEN AND UNLABORED WITH NO SIGNS OF DISTRESS. PT DENEIS ANY PAIN . ALL SAFETY PRECAUTIONS ARE IN PLACE WITH CALL LIGHT IN REACH. WILL CONTINUE TO MONITOR
--- NOTE | 2020-06-06 14:18 | NUR ---
S: BERNABE UMANA is a 55 M who presents with a diabetic foot infection. He has a history of diabetes, neuropathy, and Hep C. All medications in patient's chart were reviewed. O: Trough is 10 on 06/06/2020 VS: BP 123/68 mmHg, P 87 bpm, RR 19 breaths/min, T 98.2 F W 77 kg, HT 175.26 cm, Scr= 1.2 mg/dL, CrCl= 77.6 ml/min A: Blood culture is pending. Wound culture is pending, but shows gram negative uziel. Vancomycin trough is within therapeutic range. P: Patient is on zosyn 3.375g IV Q6H. Vancomycin ordered for pharmacy to dose. Continue Vancomycin 1g IV Q12H. Vancomycin trough is drawn before the 4th dose on 06/08/2020 0130. Vancomycin goal trough is between 10-15 mcg/ml. Pharmacy will follow and or advise on antibiotics use as needed.
--- NOTE | 2020-06-06 15:04 | NUR ---
PT COMPLAINS OF 6/10 PAININ LEFT FOOT. MORPHINE TO BE ADMINSITERED. PT COMPLAINS OF ABD PAIN AND "FEELING LIKE I HAVE TO PEE" CHIN CATHATER IN PLACE UNKINKED FLOWING WITH GRAVITY. BLADDER SCANNED RESTULING IN 12ML. FLUSHED CATHATER TUBING, SITE IS PATENT. INFORMED PT THAT IT MAY BE GAS SINCE HAS REPORTED BM WAS 3 DAYS AGO. STOOL SOFTNER ADMINSITERED. RESPIRATIONS ARE EVEN AND UNLABORED WITH NO SIGNS OF DISTRESS. ALL SAFETY PRECAUTIONS REMAIN IN PLACE WITH CALL LIGHT IN REACH.W ILL CONTINUE TO MONITOR
--- NOTE | 2020-06-06 16:02 | NUR ---
PT RESTING IN SEMI FOWLERS POSITION WATCHING TV. RSPIRATIONS ARE EVEN AND UNALBOREED WITH NO SIGNS OF DISTRESS. PT DENIES ANY PAIN OR DISCMFORTS. PT REPORTS THAT MORPHINE IS HELPING. PT DENIES ANY ABD PAIN. ALL SAFETY PRECAUTIONS ARE IN PLACE WIHT CALL LIGHT IN REACH. WILL CONTINUE TO MONITOR
--- NOTE | 2020-06-06 20:06 | NUR ---
ASSESSMENT COMPLETED. PT. RESTING IN BED WITH LEFT FOOT ELEVATED ONTO PILLOWS. C/O PAIN TO LEFT FOOT AND GENERALIZED 8/10 AND SLEEPLESSNESS; MEDICATED WITH ORDERED PRN MORPHINE AND SONATA; WILL REASSESS. PT. ABLE TO WIGGLE HIS TOES AND CAP REFILL BRISK(UNABLE TO PALPATE PEDAL PULSE R/T DRESSING). IV SITE PATENT AND ORDERED IVF INFUSING WELL. ENCOURAGED USE OF I/S. CALL LIGHT IS IN REACH. WILL CONTINUE TO MONITOR.
--- NOTE | 2020-06-07 00:15 | NUR ---
PT. C/O LEFT FOOT PAIN AND CHRONIC BACK PAIN; MEDICATED WITH ORDERED PRN MORPHINE; WILL REASSESS.
--- NOTE | 2020-06-07 01:30 | NUR ---
REASSESSMENT OF PAIN AT THIS TIME RESULTING IN 05/04. INFORMED PT THAT NO OTHER PAIN MEDICATION WAS AVAILABLE AT THIS. PT VERBALIZED UNDERSTANDING. ALL SAFETY PRECAUTIONS ARE IN PLACE WITH CALLNANCY IN REACH. WILL CONTINUE TO MONITOR
--- NOTE | 2020-06-07 02:25 | NUR ---
PT. OOB WITH WALKER AND AMBULATED TO BATHROOM TO ATTEMPT TO HAVE BM; PT. TO PULL CORD WHEN FINISHED.
--- NOTE | 2020-06-07 04:20 | NUR ---
PT. C/O LEFT FOOT PAIN AND MEDICATED WITH ORDERED PRN MORPHINE; WILL REASSESS. PO FLUIDS OFFERED.
[2020-06-07 04:23] VITALS: BP 140/85
--- NOTE | 2020-06-07 05:54 | NUR ---
MOM AND PRUNE JUICE TO ASSIST TO HAVE BM. PT. REQUESTS NO VISITORS AND RELAYED THIS MESSAGE TO REGISTARTION.
[2020-06-07 06:07] LABS: HEMATOCRIT 26.7 % (39.0-50.0); HEMOGLOBIN 8.1 g/dl (14.0-18.0); MEAN CELL VOLUME 81.9 fL CALC (80.0-100.0); MEAN CORPUSCULAR HGB 24.8 pG CALC (26.0-32.0); MEAN CORPUSCULAR HGB CONC 30.3 g/dL CAL (32.0-36.0); RED BLOOD COUNT 3.26 mill/uL (4.70-6.10); RED CELL DISTRI WIDTH 17.5 % (11.5-15.5)
[2020-06-07 06:29] LABS: ANION GAP 13 (6-22 (CALC)); BUN 18 mg/dL (9-20); BUN/CREATININE RATIO 15 (12-20 (CALC)); CARBON DIOXIDE 18 mmol/l (22-30); CHLORIDE 105 mmol/l (95-108); CREATININE 1.1 mg/dL (0.7-1.3); GFR > 60 ML/MIN (>=60 (CALC)); GFR FOR AFR.AMER. > 60 ML/MIN (>=60 (CALC)); MAGNESIUM 2.2 mg/dL (1.6-2.3); POTASSIUM 4.6 mmol/l (3.5-5.1); SODIUM 132 mmol/l (137-146)
[2020-06-07 07:39] VITALS: BP 133/77
--- NOTE | 2020-06-07 07:39 | NUR ---
RECIEVED REPORT FROM Agapito AVINA RN. PT RESTING IN LOW FOWLERS POSITION UPON ENTERING ROOM. INTRODFUCED SELF TO PT AND DISCUSSED POC. ASSESSMENT AND VITALS COMPLETED AT THIS TIME. RESPIRATIONS ARE EVEN AND UNLABROED WIHT NO SIGNS OF DISTRESS. LUNG SOUNDS ARE CLEAR. HEART RHYTHM IS NORMAL. BOWEL SOUNDS ARE HYPOACTIVE, LAST REPORTED BM 06/03/2020. STOOL SOFTENER TO BE ADMINISTERED. MOM ADMINISTERED EARLY THIS MORNING. #20G IN LAC RUNNING WITH FLUIDS AT 75ML ORDERED, SITE APPEARTS HEALTHY AND PATNET. RADIAL AND RIGHT PEDAL PULSES ARE STRONG WITH NORMAL CAPILLARY REFILL. PT PRESENTS WITH DRESSING ON LEFT FROM FROM I&D ON 06/05/20. DRESSING CHNAGED BY DR DEAN EARLIER IN MORNING.FOOT ELVATED ON PILLOWS. PT COMPLAINS OF 8/10 PAIN IN BACK AND LEFT LEG. WRITTER INFORMED PT THAT MEDICATIONS WAS YET AVAILABLE. PT VERBLAIUZED UNDERSTANDING. ALL SAFETY PRECAUTIONS REMIAN IN PLACE WITH CALL LIGHT IN REACH.W ILL CONTINUE TO MONITOR
--- NOTE | 2020-06-07 08:12 | NUR ---
DR SWANSON AT BEDSIDE DISCUSSING POC WITH PT
[2020-06-07 11:30] VITALS: BP 132/81
--- NOTE | 2020-06-07 12:03 | NUR ---
PT RESTING IN LOW FOWLERS POSITION WATCHING TV UPON ENTERING ROOM. PT COMPLAINS OF PAIN IN LOWER BACK AND LEFT LEG. TORADOL TO BE ADMINISTERED.PT REQUESTED MORPHINE. INFORMED PT TAHT MORPHINE WAS BEING HELD UNTIL ABLE TO HAVE A BM. PT VERBALIZED UNDERSTANDING. PT UNABLE TO HAVE BM, ORDERED MIRLAX AND SUPPOSITORY ADMINISTERED AT THIS TIME. ENCOURAGED PT TO CALL FOR ASSIST WHEN NEEDING TO HAVE BM . ALL SAFETY PRECAUTIONS ARE IN PLACE WITH CALL LIGHT IN REACH. WILL CONTINUE TO MONITOR
[2020-06-07 16:00] VITALS: BP 147/77
--- NOTE | 2020-06-07 16:08 | NUR ---
DR DEAN AT BEDSIDE DISCUSSING POC
--- NOTE | 2020-06-07 17:12 | NUR ---
GLUCOSE RESULTING IN 66 AT THIS TIME. ORANGE JUICE WITH SUGAR TO BE ADMINISTERED TO ASSIST WITH GETTING GLUCOSE TO NORMAL
[2020-06-07 19:00] VITALS: BP 144/84
--- NOTE | 2020-06-07 20:10 | NUR ---
ASSESSMENT COMPLETED; LEFT FOOT ELEVATED ONTO PILLOW WITH DRESSING CDI. C/O PAIN 06/04 AND MEDICATED WITH ORDERED PRN TORADOL; WILL REASSESS. IV SITE PATENT AND ORDERED IVF INFUSING WELL. PT. STILL WITH NO BM AND HAS ACTIVE BS. ACCUCHECK 71 AND PROVIDED WITH ORANGE JUICE.
--- NOTE | 2020-06-07 23:00 | NUR ---
PT. SITTING UP IN BED WITH NO DISTRESS NOTED; PT. REPORTS STILL NO BM AND DECLINES SSE AT THIS TIME, BUT WILL TAKE MOM; PROVIDED WITH MOM AND COFFEE; WILL REASSESS.
[2020-06-08] VITALS (7 sets, daily range): BP systolic 134–147; BP diastolic 57–87
--- NOTE | 2020-06-08 03:15 | NUR ---
[id number]- PT. GIVEN A SSE ORDERED AND SIGNED CONSENT FOR PROCEDURE. PT. HAD A SMALL HARD BM WITH LIQUID STOOL. IT IS MIXED WITH TOILET PAPER, UNABLE TO OBTAIN SPECIMEN ORDERED.
[2020-06-08 04:35] LABS: HEMATOCRIT 24.4 % (39.0-50.0); HEMOGLOBIN 7.5 g/dl (14.0-18.0); MEAN CELL VOLUME 82.2 fL CALC (80.0-100.0); MEAN CORPUSCULAR HGB 25.3 pG CALC (26.0-32.0); MEAN CORPUSCULAR HGB CONC 30.7 g/dL CAL (32.0-36.0); RED BLOOD COUNT 2.97 mill/uL (4.70-6.10); RED CELL DISTRI WIDTH 17.6 % (11.5-15.5)
--- NOTE | 2020-06-08 05:40 | NUR ---
RESTING IN BED WITH EYES CLOSED.
[2020-06-08 06:20] LABS: BUN 18 mg/dL (9-20); BUN/CREATININE RATIO 16 (12-20 (CALC)); CHLORIDE 107 mmol/l (95-108); CREATININE 1.1 mg/dL (0.7-1.3); GFR > 60 ML/MIN (>=60 (CALC)); GFR FOR AFR.AMER. > 60 ML/MIN (>=60 (CALC)); POTASSIUM 4.6 mmol/l (3.5-5.1); SODIUM 136 mmol/l (137-146)
[2020-06-08 06:43] LABS: ANION GAP 11 (6-22 (CALC)); CARBON DIOXIDE 23 mmol/l (22-30)
--- NOTE | 2020-06-08 07:45 | NUR ---
RECIEVED REPORT FROM TRINH FRIAS. PT RESTING IN LOW FOWLERS POSITION UPON ENTERING ROOM. INTRODUCED SELF TO PT AND DISCUSSED POC. ASSESSMENT AND VITALS COMLETED AT THIS TIME. RESPIRATIONS ARE EVEN AND UNLABORED. LUNG SOUNDS ARE CLEAR. HEART RHYTHM IS NORMAL. BOWEL SOUNDS ARE ACTIVE IN ALL QUADRANTS, LAST REPORTED BM 06/03/20. MIRLAX, SUPPOSITORY, MOM AND MAG CITRATE ADMINISTERED 06/07/20. STILL NO BM . RADIAL AND PEDAL PULSES ARE STRONG WITH NORMAL CAPILLARY REFILL. PT PRESENTS WITH DRESSING ON LEFT LEG FROM PREVIOUS I&D ON 06/05/20. DRESSING CDI AT THIS TIME. PT SCHEDULED FOR ADDITIONAL I&D AT 1400. PT COMPLAINS OF 6/10 PAIN IN BACK . WRITTER INFORMED PT THAT THE ONLY PAIN MEDICTAION IS UNAVAILABLE AT THSI TIME. KINZA NOTIFIED OF PT PAIN SCALE. PT VERBLAIZED UNDERSTANDING. ATTEMPTED TO REPOSITIOIN PT TO ASSIST WITH DISCOMFORTS. PT DENIES ANY NEEDS OR ADDITIONAL CONCERNS AT THSI TIME. ALL SAFETY PRECAUTIONS ARE IN PLACE WITH CALL LIGHT IN ERACH. TON HERR TO MONITOR
--- NOTE | 2020-06-08 09:52 | NUR ---
APPROVAL TO ADMINISTER STOOL SOFTENER AND LACTUSOE BY JAKE ECHOLS
--- NOTE | 2020-06-08 12:14 | NUR ---
ENEMA ADMINISTERED AR THIS TIME. PT TOLERATED WELL. ALL SAFETY PRECAUTIONS ARE IN PLACE WITH CALL LIGHT IN REACH.WILL CONTINUE TO [place]
--- NOTE | 2020-06-08 12:29 | NUR ---
ENEMA WAS AFFECTIVE AT THIS TIME. BSC AT BEDSIDE . ALL SAFAETY PRECAUTIONS ARE IN PLACE WITH CALL LIGHT IN REACH. WILL COTNINUE TO MONITOR
--- NOTE | 2020-06-08 13:35 | NUR ---
S: BERNABE UMANA is a 55 M who presents with cellulitis . He has a history of diabetes, neuropathy, and Hep C. All medications in patient's chart were reviewed. O: Trough is 14 on 06/08/2020 VS: BP 147/87 mmgHg, P 78 bpm, RR 19 breaths/minute, T 96.9 F W 77 kg, HT 175.26 cm, Scr= 1.1 mg/dL, CrCl= 84.6 ml/min A: Blood culture is still pending. Wound culture final shows Enterobacter Aerogenes which is sensitive to Zosyn. P: Patient is on Zosyn 3.375g IV Q6H. Vancomycin ordered for pharmacy to dose. Continue Vancomycin 1g IV Q12H. Vancomycin trough to be drawn 06/10/2020 0130. Vancomycin goal trough is between 10-15 mcg/ml. Pharmacy will follow and or advise on antibiotics use as needed.
--- NOTE | 2020-06-08 14:07 | NUR ---
PT BEING TRANSPORTED TO OR BY OR STAFF FOR SCHEDULED ABREMENT VIA STRETCHER IN STABEL CONDITION
--- NOTE | 2020-06-08 17:07 | NUR ---
PT ARRIVED BACK TO MED SURG ROOM 261 VIA STRETCHER IN STABEL CONDITION ACCOMPAINED BY OR STAFF.PT HAD DEBREMENT OF LEFT FOOT BY DR DEAN , DRESSING CDI AT THIS TIME. RESPIRATIONS ARE EVEN AND UNLABORED WITH NO SIGNS OF DISTRESS. PT DENIES ANY PAIN AT THIS TIME. ALL SAFETY PRECAUTIONS ARE IN LACE WITH CALL LIGHT IN REACH.WILL CONTINUE TO MONITOR
--- NOTE | 2020-06-08 21:20 | NUR ---
PT MEDICATED AND ASSESSMENT COMPLETED AT THIS TIME. NO S/O DISTRESS, PT DOES C/O PAIN 5/10 ON PAIN SCALE TO LEFT FOOT. FOOT WAS NOT ELEVATED, I ASSISTED PT ELEVATING IT ON PILLOWS AND DISCUSSED THIS CARE W/PT, VERBALIZED UNDERSTANDING. PT HAD ASKED FOR SLEEPING PILL, BUT WHEN I ARRIVED TO THE ROOM WITH IT HE STATED "I DON'T WANT IT YET, I WILL TAKE IT A LITTLE LATER," HELD.
--- NOTE | 2020-06-08 23:48 | NUR ---
PT MEDICATED W/IV ANTIBIOTIC THERAPY. PT IS AWAKE WATCHING A BOXING SHOW ON CELLPHONE. DENIES ANY OTHER NEEDS. FLOOR MANAGER JUST LEFT FROM OBTAINING V/S
[2020-06-09] VITALS (8 sets, daily range): BP systolic 137–185; BP diastolic 74–101
--- NOTE | 2020-06-09 02:06 | NUR ---
NEW IV SITE ACCESSED. PT TOLERATED WELL. PT IS ASKING FOR FOOD/PROVIDED TV DINNER. DENIES ANY OTHER NEEDS.
--- NOTE | 2020-06-09 04:40 | NUR ---
STRAWHAT BLOCKING OPERATOR CAME TO REPORT SHE ATTEMPTED TO DRAW LABS, BUT THAT PT REFUSED TO BE DRAWN AT THIS TIME "BECAUSE IT IS TOO EARLY."
--- NOTE | 2020-06-09 06:19 | NUR ---
PT SLEEPING NO S/O DISTRESS. CALL LIGHT AT BEDSIDE. ANTIBIOTIC THERAPY ADMINISTERED AT THIS TIME.
--- NOTE | 2020-06-09 07:45 | NUR ---
PT SITTING UP IN THE SIDE OF THE BED AND STATING HE IS HAVING SHORTNESS OF BREATH. O2 SAT 99% ON ROOM AIR. INCREASED ANXIETY AND RESTLESSNESS NOTED. OXYGEN PLACED AT 1L FOR COMFORT. MD WAS MADE AWARE AND WILL BE IN TO SEE PATIENT. PT COMPLAINED OF NOT HAVING A BOWEL MOVEMENT AND BOWEL REGIMEN IN PLACE. WILL CONTINUE TO OBSERVE.
--- NOTE | 2020-06-09 11:00 | NUR ---
MD IN TO SEE PT AND NEW ORDER FOT STAT CTA OF CHEST AND AWAITING RESULTS. PT SITTING UP AT BEDSIDE AND STATES HE FEELS A LITTLE BETTER. PT HAS SMALL BOWEL MOVEMENT NOTED THAT US HARD AND BROWN IN COLOR. PT WAS EDUCTAED NOT TO AMBULATE ON LEFT FOOT DUE TO NO WEIGHT BEARING STATUS BUT NOTED AMBUALTING ON IT. IV INTACT AND FLUIDS CONTINUES WELL ABT THERAPY WITH NO ADVERSE SIDE EFFECTS. WILL CONTINUE TO OBSERVE.
--- NOTE | 2020-06-09 14:00 | NUR ---
PT HAS NEW ORDER FOR LASIX IV WELL ORDER TO STOP FLUIDS. IM LASIX WAS GIVEN AND PT SITTING UP AT BEDSIDE WITH NO DISTRESS NOTED. WILL CONTINUE TO OBSERVE.
--- NOTE | 2020-06-09 19:49 | NUR ---
[place] MEDICATED FOR PAIN PHYSICIANS ORDERS PROVIDE. WILL MONITOR BP RESPONSE TO BEING MEDICATED FOR PAIN AND INFORM PHYSICIAN REQUESTED. LUNG SOUNDS ARE CLEAR, NO LABORED BREATHING, PT DENIES FEELING SOB, BUT REPORTS HAVING IT EARLIER AND FEELING BETTER NOW. EDUCATION PROVIDED TO PT REGARDING USE OF IS, VERBALIZED UNDERSTANDING.
[2020-06-09 22:12] LABS: ANION GAP 11 (6-22 (CALC)); BUN 13 mg/dL (9-20); BUN/CREATININE RATIO 11 (12-20 (CALC)); CARBON DIOXIDE 25 mmol/l (22-30); CHLORIDE 107 mmol/l (95-108); CREATININE 1.1 mg/dL (0.7-1.3); GFR > 60 ML/MIN (>=60 (CALC)); GFR FOR AFR.AMER. > 60 ML/MIN (>=60 (CALC)); MAGNESIUM 2.4 mg/dL (1.6-2.3); POTASSIUM 4.7 mmol/l (3.5-5.1); SODIUM 138 mmol/l (137-146)
[2020-06-09 22:15] LABS: HEMATOCRIT 24.6 % (39.0-50.0); HEMOGLOBIN 7.6 g/dl (14.0-18.0); MEAN CORPUSCULAR HGB 25.3 pG CALC (26.0-32.0); MEAN CORPUSCULAR HGB CONC 30.9 g/dL CAL (32.0-36.0); RED CELL DISTRI WIDTH 18.3 % (11.5-15.5)
--- NOTE | 2020-06-09 23:52 | NUR ---
IV ANTIBIOTIC THERAPY ADMINISTERED AT THIS TIME. NO S/O DISTRESS NOTED. MEDICAL BILLER/CODER IN W/PT AT THIS TIME OBTAINING V/S AND EMPTYING CHIN CATH BAG.
--- NOTE | 2020-06-10 03:36 | NUR ---
PT MEDICATED FOR PAIN / IN LEFT FOOT. ANTIBIOTIC THERAPY IS RUNNING RO 22 IN LW. DENIES ANY OTHER NEEDS AT THIS TIME.
[2020-06-10 03:56] VITALS: BP 143/77
[2020-06-10 05:52] LABS: HEMATOCRIT 24.9 % (39.0-50.0); HEMOGLOBIN 7.4 g/dl (14.0-18.0); MEAN CELL VOLUME 83.8 fL CALC (80.0-100.0); MEAN CORPUSCULAR HGB 24.9 pG CALC (26.0-32.0); MEAN CORPUSCULAR HGB CONC 29.7 g/dL CAL (32.0-36.0); NEUT# 9.77 thou/uL (1.82-7.42); RED BLOOD COUNT 2.97 mill/uL (4.70-6.10); RED CELL DISTRI WIDTH 18.6 % (11.5-15.5)
[2020-06-10 06:14] LABS: ALBUMIN 2.7 g/dL (3.2-5.0); ALKALINE PHOSPHATASE 428 u/l (38-126); ANION GAP 9 (6-22 (CALC)); BUN 13 mg/dL (9-20); BUN/CREATININE RATIO 11 (12-20 (CALC)); CARBON DIOXIDE 24 mmol/l (22-30); CHLORIDE 108 mmol/l (95-108); CREATININE 1.2 mg/dL (0.7-1.3); GFR > 60 ML/MIN (>=60 (CALC)); GFR FOR AFR.AMER. > 60 ML/MIN (>=60 (CALC)); POTASSIUM 4.5 mmol/l (3.5-5.1); SGOT/AST 17 u/l (17-59); SODIUM 136 mmol/l (137-146); TOTAL PROTEIN 6.5 g/dL (6.3-8.2)
[2020-06-10 06:33] LABS: BILIRUBIN, TOTAL 0.3 mg/dL (0.0-1.4)
--- NOTE | 2020-06-10 10:01 | NUR ---
PT IN BED WITH EYES CLOSED. NO S/S OF DISTRESS. RESPIRATION ARE EVEN AND NON LABORED. MEDICATIONS GIVEN AND TOLERATED WELL. CHIN CATHETER REMOVED THIS AM AND PT TOLERATED WELL. CATHETER TIP IN PLACE. MD IN TO SEE PT AND PT REQUESTING TO DISCHARGE HOME. IV SITE INTACT AND DRESSING IN PLACE. NO S/S OF INFECTION/INFILTRATION. WILL CONTINUE TO OBSERVE.
[2020-06-10] MEDS ORDERED: TRAMADOL HCL50 MG PO (10:05)
[2020-06-10] MEDS ORDERED: BACTRIM DS1 TAB PO (10:25)
--- NOTE | 2020-06-10 12:47 | NUR ---
VANCOMYCIN ORDERED FOR PHARMACY TO DOSE. PT IS BEING TREATED FOR CELLULITIS WITH GOAL TROUGH 10-15. TROUGH THIS AM WAS 16, SO DOSE WAS CHANGED TO 750MG IV Q12H STARTING AT 1500. DRAW TROUGH 06/12 V@ 0230. PHARMACY WILL CONTINUE TO FOLLOW
--- NOTE | 2020-06-10 14:40 | NUR ---
PT ALERT AND ORIENTED AND ABLE TO MAKE NEEDS KNOWN. CHIN WAS DISCONTINUED AND PT VOIDING WITH NO COMPLICATIONS. ENCORAGED PT NOT TO AMBULATE ON LEFT FOOT. PT STATED HE UNDERSTOOD. PT DISCHARGED HOME THIS . DISCHARGE INSTRUCTION DISCUSSED WITH PT AND MADE AWARE TO FOLLOW UP WITH SURGEON DR. CHEEMA AND PCP AFTER DISCHARGE. PT STATES HE HAS A FOLLOW UP APPOINTMENT WITH DR. CHEEMA ON THIS THURSDAY. ALL PERTINENT PAPERS AND BELONGINGS TAKEN WITH PT.
== END 2020-06-10 14:22 | disposition home or self-care (01) | DRG 623 ==
LOC: ED 09:22 → ED-I 11:20 → ED 12:25 → ED-I 12:26 → MS2 15:40
PROVIDERS: Family Medicine; Internal Medicine; Nurse Practitioner; ADMIT Internal Medicine; ATTEND Internal Medicine
PROC: 0JCR0ZZ Extirpation of Matter from Left Foot Subcutaneous Tissue and Fascia, Open Approach (ICD-10-PCS; principal; 2020-06-05)
PROC: 0JBR0ZZ Excision of Left Foot Subcutaneous Tissue and Fascia, Open Approach (ICD-10-PCS; 2020-06-05)
PROC: 0J9R0ZZ Drainage of Left Foot Subcutaneous Tissue and Fascia, Open Approach (ICD-10-PCS; 2020-06-05)
PROC: 30233N1 Transfusion of Nonautologous Red Blood Cells into Peripheral Vein, Percutaneous Approach (ICD-10-PCS; 2020-06-06)
PROC: 0JBR0ZZ Excision of Left Foot Subcutaneous Tissue and Fascia, Open Approach (ICD-10-PCS; 2020-06-08)
PROC: 0HXNXZZ Transfer Left Foot Skin, External Approach (ICD-10-PCS; 2020-06-08)
DX: E11.628 Type 2 diabetes mellitus with other skin complications (principal); L03.116 Cellulitis of left lower limb; E11.52 Type 2 diabetes mellitus with diabetic peripheral angiopathy with gangrene; I96 Gangrene, not elsewhere classified; L02.612 Cutaneous abscess of left foot; J81.1 Chronic pulmonary edema; L97.429 Non-pressure chronic ulcer of left heel and midfoot with unspecified severity; B96.89 Other specified bacterial agents as the cause of diseases classified elsewhere; E11.65 Type 2 diabetes mellitus with hyperglycemia; E11.40 Type 2 diabetes mellitus with diabetic neuropathy, unspecified; B19.20 Unspecified viral hepatitis C without hepatic coma; M79.5 Residual foreign body in soft tissue; G89.29 Other chronic pain; M54.9 Dorsalgia, unspecified; D64.9 Anemia, unspecified; K59.00 Constipation, unspecified; Z79.4 Long term (current) use of insulin; R19.5 Other fecal abnormalities; Z86.19 Personal history of other infectious and parasitic diseases; M79.672 Pain in left foot; E11.621 Type 2 diabetes mellitus with foot ulcer; E11.42 Type 2 diabetes mellitus with diabetic polyneuropathy; Z91.19 Patient's noncompliance with other medical treatment and regimen
CPT/HCPCS: A9579; G0378; J0131; J1650; J3370; P9016; Q9967

== ENCOUNTER 2020-06-28 15:58 | Inpatient (IN) | payer MEDICARE ==
[~2020-06-28] VITALS: Ht 175.3 cm; Wt 75.7 kg
[~2020-06-28 15:58] MED LIST changes: +BACTRIM DS1 TAB PO; +TRAMADOL HCL50 MG PO
--- NOTE | 2020-06-28 16:09 | NUR ---
PT ARRIVED VIA WC WITH STAFF. AMBULATED TOT HE BED.
--- NOTE | 2020-06-28 16:10 | NUR ---
IV SITE STARTED BY ROCKY CANTU WITH LABS DRAWN/. BIOFIRE SENT TO THE LAB FOR TESTING.
[2020-06-28 16:17] VITALS: BP 112/74
--- NOTE | 2020-06-28 16:30 | NUR ---
ASSESSMENT IS COMPLETED: IV SITE IS FREE FROM REDNESS OR EDEMA. HR IS REG,PULSES ARE STRONG X4, ABD IS SOFT WITH ACTIVE BS. BREATH SOUNDS ARE CLEAR,BILATERALLY. DRESSING ON LEFT FOOT IS CDI. HAS +2 PITTING EDEMA NOTED ON TOES. PINK AND DRY. SWABBED PT FOR BIOFIRE. FOR PROCEDURE TOMORROW.
[2020-06-28 16:39] LABS: HEMATOCRIT 27.3 % (39.0-50.0); HEMOGLOBIN 8.6 g/dl (14.0-18.0); IMMATURE GRANULOCYTES 0.5 % (0.0-5.0); MEAN CELL VOLUME 79.4 fL CALC (80.0-100.0); MEAN CORPUSCULAR HGB CONC 31.5 g/dL CAL (32.0-36.0); NEUT# 7.99 thou/uL (1.82-7.42); RED BLOOD COUNT 3.44 mill/uL (4.70-6.10); RED CELL DISTRI WIDTH 18.7 % (11.5-15.5)
[2020-06-28 18:39] LABS: BILIRUBIN, TOTAL 0.3 mg/dL (0.0-1.4); CREATININE 2.1 mg/dL (0.7-1.3)
[2020-06-28 18:42] LABS: POTASSIUM 5.3 mmol/l (3.5-5.1)
[2020-06-28 18:43] LABS: TOTAL PROTEIN 9.5 g/dL (6.3-8.2)
[2020-06-28 19:09] VITALS: BP 130/79
--- NOTE | 2020-06-28 20:30 | NUR ---
PT RESTING IN BED. DENIES PAIN OR DISCOMFORT. PHYSICAL ASSESMENT COMPLETE. SCHEDULED MEDICATIONS ADMINISTERED. SEE E-MAR. PLAN OF CARE REVIEWED. PT VERBALIZES UNDERSTANDING AND DENIES QUESTIONS. PT DENIES FURTHER NEEDS AT THIS TIME. CALL GUILLEN WITHIN REACH, AGREES TO CALL PRN.
[2020-06-29] VITALS (10 sets, daily range): BP systolic 83–127; BP diastolic 32–73
--- NOTE | 2020-06-29 00:37 | NUR ---
PT LAYING IN BED, APPAERS TO BE SLEEPING COMFORTABLY, NO APPARENT DISTRESS. RESPIRATIONS REGULAR AND UNLABORED. CALL GUILLEN REMAINS WITHIN REACH.
[2020-06-29 02:39] LABS: URINE BILIRUBIN - DIPSTICK NEGATIVE (NEGATIVE); URINE BLOOD DIPSTICK NEGATIVE (NEGATIVE); URINE CLARITY CLEAR; URINE COLOR YELLOW; URINE GLUCOSE - DIPSTICK NEGATIVE (NEGATIVE); URINE KETONE NEGATIVE (NEGATIVE); URINE LEUK ESTERASE NEGATIVE (Negative); URINE NITRITE - DIPSTICK NEGATIVE (Negative); URINE PROTEIN - DIPSTICK 100 mg/dL (NEG-TRACE); URINE UROBILINOGEN - DIPSTICK 0.2 E.U./dL (0.2)
[2020-06-29 04:37] LABS: URINE COARSE GRANULAR CAST FEW lpf; URINE HYALINE CAST FEW lpf (NONE-RARE); URINE RBC 0-2 RBC/hpf (0-5); URINE SQUAMOUS EPITHELIAL CELL FEW EPI/hpf (0-FEW)
[2020-06-29 05:03] LABS: ALBUMIN 3.3 g/dL (3.2-5.0); BILIRUBIN, TOTAL 0.4 mg/dL (0.0-1.4); CREATININE 1.7 mg/dL (0.7-1.3); TOTAL PROTEIN 7.8 g/dL (6.3-8.2)
[2020-06-29 05:09] LABS: POTASSIUM 5.5 mmol/l (3.5-5.1)
--- NOTE | 2020-06-29 07:32 | NUR ---
PT LAYING IN BED. A&O X3. NO DISTRESS NOTED. PT DENIES ANY PAIN. LEFT LOWER FOOT DRESSING IN PLACE WITH SLIGHT SHADOWING NOTED. NO OTHER NEEDS AT THIS TIME. ASSESSMENT COMPLETED. DISCUSSED POC. CALL LIGHT IN REACH. CONTINUE TO MONITOR.
--- NOTE | 2020-06-29 08:21 | NUR ---
OR CONSENT OBTAINED
--- NOTE | 2020-06-29 09:58 | NUR ---
S: BERNABE UMANA is a 55 M who presents with Diabetic Foot Ulcer. He has a history of diabetes, diabetic neuropathy, chronic back pain, and hepatitis C. All medications in patient's chart were reviewed. O: VS: BP 107/32 mmHg, P 82 bpm, RR 16 breaths/minute, T 97.2 F W 75.75 kg, HT 175.26 cm, Scr= 1.7 mg/dL, CrCl= 52 ml/min A: P: Patient is on Zosyn 3.375g IV q6h. Vancomycin ordered for pharmacy to dose. Start new vancomycin dose of 750 mg IV Q12H. Vancomycin trough is drawn before the 4th dose on 06/30/2020 @ 0830 Vancomycin goal trough is between 10-15 mcg/ml. Pharmacy will follow and or advise on antibiotics use as needed.
--- NOTE | 2020-06-29 11:06 | NUR ---
CALLED AND PLACED WOUND VAC [id number] SPOKE WITH KATHY ÁLVAREZ # [phone]
--- NOTE | 2020-06-29 11:06 | NUR ---
PT TAKEN VIA STRETCHER ACCOMPANIED BY NAYANA RN TO THE OR, PT IN STABLE CONDITION. ZOSYN GIVEN TO NAYANA TO BE ADMINISTERED IN THE OR
--- NOTE | 2020-06-29 14:10 | NUR ---
PT ARRIVED TO AL VIA STRETCHER ACCOMPANIED BY NAYANA TSANG. PT A&O X3. NO DISTRESS NOTED. PT CURRENTLY ON ROOM AIR WITH NO APPARENT DISTRESS NOTED. SCD TO RT LEG IN PLACE. IS DEVICE AT BEDSIDE. SURGICAL DRESSING TO LLE WITH WOUND VAC IN PLACE SET AT 125 MM HG WITH SANGUINEOUS DRAINAGE NOTED TO COLLECTION CANISTER. CIRCULATION ASSESSED TO TOES, NO CYANOSIS PRESENT, CAPILLARY REFILL BRISK <3 SECS. PT HYPOTENSIVE, BUT ASYMPTOMATIC. PT ABLE TO DRINK WATER WITH NO DIFFICULTY, DIET TO BE ADVANCED. ASSESSMENT COMPLETED. CONTINUE TO MONITOR.
--- NOTE | 2020-06-29 17:56 | NUR ---
PT IN BED. NO DISTRESS NOTED. CIRCULATION ASSESSED, NO CYANOSIS NOTED. CALL LIGHT IN REACH. CONTINUE TO MONITOR.
--- NOTE | 2020-06-29 19:01 | NUR ---
REPORT FROM LEELEE TSANG. PT NOTED RESTING IN BED. NO APPARENT DISTRESS NOTED. ALERT AND ORIENTED. DRESSING TO LEFT FOOT, CDI. WOUND VAC IN PLACE AT 125MMHG. ELEVATED ON 2 PILLOWS. TOES WARM AND PINK. PT DENIES ANY PAIN OR DISCOMFORT AT THIS TIME. IV SITE APPEARS HEALTHY. DISCUSSED POC AND NWB STATUS. PT VERBALIZED UNDERSTANDING. NO CURRENT WANTS OR NEEDS. CALL LIGHT WITHIN REACH. WILL CONTINUE TO MONITOR.
--- NOTE | 2020-06-29 20:56 | NUR ---
IV SITE FOUND DISLODGED. REMOVED AT THIS TIME, CATH INTACT. NEW IV START X1 ATTEMPT #22 TO RFA, BRISK BLOOD RETURN NOTED. PT TOLERATED WELL. IV ABT INITIATED AT THIS TIME. SNACK PROVIDED UPON REQUEST. CALL LIGHT WITHIN REACH. WILL CONTINUE TO MONITOR.
--- NOTE | 2020-06-30 00:52 | NUR ---
PT REFUSED SCHEDULED APAP AT THIS TIME. DENIES ANY PAIN OR DISCOMFORT. IV SITE APPEARS HEALTHY. LEFT FOOT ELEVATED ON TWO PILLOWS. DRESSING CDI AND WOUND VAC REMAINS AT 125MMHG SUCTION. PT DENIES ANY CURRENT WANTS OR NEEDS. NO APPARENT DISTRESS NOTED. CALL LIGHT WITHIN REACH. WILL CONTINUE TO MONITOR.
[2020-06-30 04:21] LABS: HEMOGLOBIN 7.6 g/dl (14.0-18.0); MEAN CELL VOLUME 82.5 fL CALC (80.0-100.0); MEAN CORPUSCULAR HGB 24.1 pG CALC (26.0-32.0); MEAN CORPUSCULAR HGB CONC 29.2 g/dL CAL (32.0-36.0); RED BLOOD COUNT 3.15 mill/uL (4.70-6.10); RED CELL DISTRI WIDTH 17.7 % (11.5-15.5)
--- NOTE | 2020-06-30 04:31 | NUR ---
PT RESTING IN BED WITH EYES CLOSED. NO APPARENT DISTRESS NOTED. RESPIRATIONS EVEN AND UNLABORED. LEFT FOOT ELEVATED ON TWO PILLOWS. DRESSING CDI AND WOUND VAC WITH CONTINUOUS SUCTION AT 125 MMHG. TOES REMAIN WARM AND PINK. CALL LIGHT WITHIN REACH. WILL CONTINUE TO MONITOR.
[2020-06-30 04:33] VITALS: BP 147/82
[2020-06-30 04:36] LABS: ALBUMIN 3.4 g/dL (3.2-5.0); CREATININE 1.8 mg/dL (0.7-1.3); TOTAL PROTEIN 7.7 g/dL (6.3-8.2)
[2020-06-30 04:43] LABS: BILIRUBIN, TOTAL 0.2 mg/dL (0.0-1.4); POTASSIUM 5.6 mmol/l (3.5-5.1)
--- NOTE | 2020-06-30 06:20 | NUR ---
PT NOT ABLE TO VOID. BLADDER SCANNED AT THIS TIME. GREATER THAN 900ML NOTED. STRAIGHT CATH ORDER FROM REFERENCE SERVICES HEAD PHYSICIAN. PT STRAIGHT CATH USING STERILE TECHNIQUE. 1350ML CLEAR YELLOW OUTPUT NOTED. ENCOURAGED PT TO GET OOB TODAY PER PHYSICIAN. PT VERBALIZED UNDERSTANDING. CALL LIGHT WITHIN REACH. WILL CONTINUE TO MONITOR.
--- NOTE | 2020-06-30 07:15 | NUR ---
REPORT WAS RECIEVED BY JOSE MARTIN. PT WOUND VAC ALARM READING LEAKING AIR. JOSE MARTIN AND I ASSESS WOUND VAC. JOSE MARTIN APPLIED MORE REINFORCEMENT ON DRESSING. ALARM STOPPED AND WOUND VAC AT 125. CALL LIGHT IN REACH.
--- NOTE | 2020-06-30 07:42 | NUR ---
ASSESSMENT DONE. PT IS A&O X3. PT STATED PAIN IN LEFT FOOT 05/04. MEDICATED PT WITH ROXICODONE. WOUND VAC IN PLACE IN LEFT FOOT AND ELEVATED IN TWO PILLOWS. RESPS EVEN AND UNLABORED. PT DENIES ANY OTHER NEEDS AT THIS TIME. CALL LIGHT IN REACH.
[2020-06-30 07:50] VITALS: BP 146/89
--- NOTE | 2020-06-30 09:16 | NUR ---
DR. DEAN AT BEDSIDE TO ASSESS PT. STATED WOUND VAC SET IS FINE. DISCUSS POC WITH PT.
--- NOTE | 2020-06-30 12:00 | NUR ---
PT HAS NOT VOID YET. ENCOURAGE PT TO VOID AND US THE URINAL. PT VERBLIZED UNDERSTANDING. CALL LIGHT IN REACH.
--- NOTE | 2020-06-30 13:13 | NUR ---
NOTIFIED MARIA G NGUYEN RE: PT HAS NOT VOID AND BLADDER SCAN DONE READING 850ML OF URINE. ORDERS RECEIVED.
--- NOTE | 2020-06-30 14:00 | NUR ---
STRAIGHT CATH DONE. URINE OUTPUT 650ML YELLOW URINE. PT TOLERATED WELL. PT DENIES ANY OTHER NEEDS AT THIS TIME. CALL LIGHT IN REACH.
--- NOTE | 2020-06-30 14:18 | NUR ---
S: BERNABE UMANA is a 55 M who presents with DIABETIC FOOT ULCER. He has a history of DM2. All medications in patient's chart were reviewed. O: VS: BP 146/89, P 87, RR 18,T 96.8 W 75kg, HT 69IN, Scr=1.8 A: WOUND culture show S.AUREUS P: Vancomycin ordered for pharmacy to dose. CONTINUE Vancomycin 750mg IV Q12H. Vancomycin trough is drawn before dose on 07/01/20 @0830 Vancomycin goal trough is between <10-15 mcg/ml>. Pharmacy will follow and or advise on antibiotics use as needed.
--- NOTE | 2020-06-30 16:01 | NUR ---
X2 PERSON ASSISTED PT TO THE RECLINER. PT TOLERATED WELL. WOUND VAC IN PLACE IN LEFT FOOT. PT DENIES ANY OTHER NEEDS AT THIS TIME. CALL LIGHT IN REACH.
[2020-06-30 16:12] VITALS: BP 134/75
[2020-06-30 19:00] VITALS: BP 143/81
--- NOTE | 2020-06-30 20:00 | NUR ---
PATIENT ALERT, VERBAL, ABLE TO MAKE NEEDS KNOWN. ABLE TO TOLERATE MEDS WELL WHOLE. CONT OF BOWEL AND BLADDER--USES URINAL AD BRYCE. NWB TO LFT LEG--WOUND VAC INTACT AND FUNCTIONING PROPERLY. NO FURTHER ISSUES VOIDING THIS SHIFT. PIV SITE PATENT TO RIGHT FOREARM--FLUSHES WELL--SITE UNREMARKABLE. CONT ON IV ABT THERAPY RELATED TO LEFT FOOT WOUND WITH NO SIDE EFFECTS NOTED--AFEBRILE. NS INFUSING KVO @ 20ML/HR WITHOUT DIFFICULTY--TOLERATING FLUIDS WELL. NO S/S OF GLYCEMIC REACTION NOTED. REQUESTED PRN PAIN MED--IV DILAUDID GIVEN @ 2044 WITH POSITIVE EFFECT FOR C/OS OF LEFT FOOT PAIN. WILL CONT TO MONITOR FOR ANY FURTHER CHANGES.
--- NOTE | 2020-07-01 | NUR ---
PATIENT AWAKE WATCHING TV AT THIS TIME--NO APPARENT DISTRESS NOTED--WOUND VAC INTACT AND FUNCTIONING PROPERLY TO LEFT PLANTAR SURFACE OF FOOT. DENIES PAIN OR DISCOMFORT. PIV SITE PATENT--FLUSHES WEL--SITE UNREMARKABLE. NS INFUSING KVO @ 10ML/HR--TOLERATING WELL. WILL CONT TO MONITOR FOR ANY FURTHER CHANGES.
[2020-07-01 04:00] VITALS: BP 156/90
--- NOTE | 2020-07-01 04:00 | NUR ---
PATIENT RESTING SOUNDLY IN BED WITH EYES CLOSED AT THIS TIME. WOUND CX SENSITIVITY RESULTS BACK--SHOWING SUSCEPTIBILITY TO VANCOMYCIN PATIENT IS RECEIVING. WOUND VAC REMAINS PATENT TO LEFT FOOT--FUNCTIONING PROPERLY. PIV SITE PATENT TO RIGHT FOREARM--FLUSHES WELL--NS INFUSING KVO @ 10ML.HR WITHOUT DIFFICULTY--TOLERATING FLUIDS WELL. WILL CONT TO MONITOR FOR ANY FURTHER CHANGES.
[2020-07-01 04:51] LABS: HEMATOCRIT 26.9 % (39.0-50.0); MEAN CELL VOLUME 82.3 fL CALC (80.0-100.0); MEAN CORPUSCULAR HGB 24.5 pG CALC (26.0-32.0); MEAN CORPUSCULAR HGB CONC 29.7 g/dL CAL (32.0-36.0); RED BLOOD COUNT 3.27 mill/uL (4.70-6.10); RED CELL DISTRI WIDTH 17.9 % (11.5-15.5)
[2020-07-01 05:02] LABS: ALBUMIN 3.5 g/dL (3.2-5.0); BILIRUBIN, TOTAL 0.2 mg/dL (0.0-1.4); CREATININE 1.8 mg/dL (0.7-1.3); TOTAL PROTEIN 7.9 g/dL (6.3-8.2)
[2020-07-01 05:09] LABS: POTASSIUM 5.4 mmol/l (3.5-5.1)
[2020-07-01 07:48] VITALS: BP 147/88
--- NOTE | 2020-07-01 09:50 | NUR ---
PT IS AWAKE, ALERT, ORIENTED X 3, RESTS IN THE BED IN NO DISTRESS. LEFT FOOT SEEN WITH LETTY WRAP, WOUND VAC TUBING EXITING LATERALLY. PT PROVIDED PAIN MED NECESSARY. VANCO TROUGH DRAWN, AWAITING RESULT PRIOR TO ADMINISTRATING NEXT DOSE.
[2020-07-01] MEDS ORDERED: DOXYCYCL HYC100 MG PO (12:17)
--- NOTE | 2020-07-01 12:39 | NUR ---
PT SEEN BY DR SWANSON THIS MORNING. PT IS DOING WELL, BUT WILL NEED HIS OWN WOUND VAC PRIOR TO DISCHARGE TO HOME. PT PROVIDED PAIN MEDS REQUESTED.
[2020-07-01 15:14] VITALS: BP 165/96
--- NOTE | 2020-07-01 16:22 | NUR ---
PT ATTEMPTS TO SLEEP BUT MULTIPLE PHONE CALLS FROM GF DID NOT ALLOW. GF FINALLY ADVISED NOT TO CALL BACK, SHE AGREED. PT REMAINS BEFORE, AWARE OF NEED FOR WOUND VAC PRIOR TO DISCHARGE.
[2020-07-01 19:00] VITALS: BP 162/92
--- NOTE | 2020-07-01 19:21 | NUR ---
REPORT FROM TONY TSANG. PT NOTED RESTING IN BED. NO APPARENT DISTRESS NOTED. ALERT AND ORIENTED. DRESSING TO LEFT FOOT, CDI. WOUND VAC IN PLACE AT 125MMHG. ELEVATED ON 2 PILLOWS. TOES WARM AND PINK. PT DENIES ANY PAIN OR DISCOMFORT AT THIS TIME. IV SITE APPEARS HEALTHY. DISCUSSED POC AND NWB STATUS. PT VERBALIZED UNDERSTANDING. NO CURRENT WANTS OR NEEDS. CALL LIGHT WITHIN REACH. WILL CONTINUE TO MONITOR.
[2020-07-01 19:50] VITALS: BP 133/74
--- NOTE | 2020-07-02 00:24 | NUR ---
PT MEDICATED FOR PAIN 05/04 IN LLE. WOUND VAC IN PLACE AT 125MMHG SUCTION, DRESSING CDI. IV SITE REMAINS HEALTHY. PT DENIES ANY OTHER CURRENT WANTS OR NEEDS. CALL LIGHT WITHIN REACH. WILL CONTINUE TO MONITOR.
--- NOTE | 2020-07-02 03:32 | NUR ---
DIET SODA PROVIDED UPON REQUEST. PT DENIES ANY PAIN OR DISCOMFORT AT THIS TIME. LLE ELEVATED ON TWO PILLOWS, WOUND VAC SUCTION AT 125MMHG. NO APPARENT DISTRESS NOTED. URINALS EMPTIED AT THIS TIME. CALL LIGHT WITHIN REACH. WILL CONTINUE TO MONITOR.
[2020-07-02 05:22] VITALS: BP 175/95
[2020-07-02 05:44] VITALS: BP 144/85
[2020-07-02 08:00] VITALS: BP 169/94
--- NOTE | 2020-07-02 08:59 | NUR ---
ASSESSMENT DONE. PT IS A&O X3. PT STATED PAIN IN LEFT FOOT. PT REFUSED PO PAIN MEDICATION. MEDICATED PT WITH DILUDID IV. RESPS EVEN AND UNLABORED.LEFT FOOT DRESSING CDI AND WOUND VAC IN PLACE. PT DENIES ANY OTHER NEEDS AT THIS TIME. CALL LIGHT IN REACH.
[2020-07-02 09:38] VITALS: BP 160/94
--- NOTE | 2020-07-02 12:30 | NUR ---
PT HAS PAIN IN FOOT BUT REFUSING PO MEDICATIONS AT THIS TIME. PT DENIES ANY OTHER NEEDS AT THIS TIME. CALL LIGHT IN REACH.
--- NOTE | 2020-07-02 13:10 | NUR ---
S: BERNABE UMANA is a 55 M who presents with MRSA culture positive, urinary retention, acute kidney failure, diabetes, anemia. . 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 All medications in patient's chart were reviewed. O: VS: BP 160/94 P 84 bpm, RR 18 breaths/min, T96.6F W 75.75kg, HT 175.26cm, Scr= 1.8mg/dL ,CrCl= 50.9 ml/min A: Wound culture shows MRSA which is sensitive to Vancomycin. P: Patient is on Vacomycin IV. Vancomycin ordered for pharmacy to dose. Start Vancomycin 750 mg IV Q12H. Vancomycin trough is drawn before the 4th dose on 07/03/20 at 1400. Vancomycin goal trough is between <15-20 mcg/ml>. Pharmacy will follow and or advise on antibiotics use as needed.
[2020-07-02 15:00] VITALS: BP 148/89
--- NOTE | 2020-07-02 15:40 | NUR ---
WOUND VAC ALARM STATING BLOCKAGE. SANTOS AND I CHANGE PT DRESSING IN WOUND VAC. WOUND VAC WORKING WELLL NOW. PT DENIES ANY OTHER NEEDS AT THIS TIME. CALL LIGHT IN REACH.
[2020-07-02 19:00] VITALS: BP 161/93
--- NOTE | 2020-07-02 19:00 | NUR ---
RECEIVED REPORT FROM NURSE MICHEL PATEINT RESTING IN BED, BREATHING EVEN UNLABORED, WOUND VAC NOTED ON LEFT FOOT, CALL LIGHT AT REACH.
--- NOTE | 2020-07-02 20:00 | NUR ---
PATIENT RESTING IN BED, C/O THROBBING PAIN ON LEFT FOOT , PRN DILAUDID GIVEN PER REQUEST, PATIENT HAS ONGOING IV NS @ KVO IV SITE APPEARS HEALTHY, LBM 07/01, PATIENT ON WOUND VAC @ 125 WITH GOOD SEAL, WILL CONTINUE TO MONITOR CALL LIGHT AT REACH.
--- NOTE | 2020-07-03 | NUR ---
DUE ANTIBIOTIC GIVEN, PATIENT C/O PAIN ON LEFT FOOR PRN DILAUDID GIVEN WILL REEVALUATE, CALL LIGHT AT REACH.
[2020-07-03 04:00] VITALS: BP 122/70
--- NOTE | 2020-07-03 04:36 | NUR ---
PATIENT RESTING IN BED WITH EYES CLOSED, BREATHING EVEN UNLABORED CALL LIGHT AR REACH.
--- NOTE | 2020-07-03 07:35 | NUR ---
REPORT RECEIVED FROM TRINH TOMLINSON. PY RESTING IN BED SUPINE WITH EYES CLOSED; AWAKENS SPONTANEOUSLY. C/O 6/10 FOOT AND BACK PAIN; WOUND VAC INTACT TO LEFT FOOT; SCD INTACT TO RLE. GOOD PULSE TO LEFT FOOT; ABLE TO WIGGLE TOES; GOOD CAP REFILL; POOR SENSATION, PT IS UNABLE TO TELL WHEN TOES ARE BEING TOUCHED. RESPIRATIONS EVEN AND UNLABORED ON ROOM AIR. PLAN OF CARE REVIEWED. PT ENCOURAGED TO VERALIZE CONCERNS. STATES UNDERSTANDING. SAFETY MEASURES IN PLACE. CALL LIGHT WITHIN REACH.
[2020-07-03 07:39] VITALS: BP 169/90
--- NOTE | 2020-07-03 10:06 | NUR ---
ROXICODONE GIVEN FOR 7/10 LEFT FOOT PAIN. PT ASSISTED WITH AMBULATION TO BATHROOM FOR LARGE HARD BOWEL MOVEMENT; PT KEPT WEIGHT ON HEEL OF FOOT AND ASSISTED WITH ATTACHMENTS INCLUDING WOUND VAC.
[2020-07-03] MEDS ORDERED: LORTAB5 PO (10:53)
--- NOTE | 2020-07-03 11:06 | NUR ---
S: BERNABE UMANA is a 55 M who presents with Diabetic Foot Infection. He has a history of diabetes, diabetic neuropathy, chronic back pain, and hepatitis C. All medications in patient's chart were reviewed. O: Trough is 14 ug/mL on 07/03/2020. VS: BP 169/90 mmHg, P 89 bpm, RR 18 breaths/minute, T 97.0 F W 75.75 kg, HT 175.26 cm, Scr= 1.8 mg/dL, CrCl= 50.9 ml/min A: Wound culture shows MRSA which is sensitive to vancomycin. P: Patient is on Zosyn 3.375g IV q6h. Vancomycin ordered for pharmacy to dose. Continue Vancomycin 750 mg IV Q12H. Vancomycin goal trough is between 15-20 mcg/ml. Pharmacy will follow and or advise on antibiotics use as needed.
--- NOTE | 2020-07-03 14:37 | NUR ---
[facility] ON UNIT. WOUND VAC MACHINE REPLACED AND ABLE TO GO HOME WITH PORTABLE WOUND VAC; SEAL IS TIGHT; SUCTION AT 125 [facility]. PT EAGER TO GO HOME. CRUTCHES PROVIDED TO PT. ASSITED WITH APPLYING HIS OWN SURGICAL BOOT TO LEFT FOOT.
--- NOTE | 2020-07-03 14:40 | NUR ---
IV site discontinued, cath intact. No edema , no redness, voices no discomfort.
--- NOTE | 2020-07-03 14:41 | NUR ---
Discharge instructions given. Patient verbalizes understanding of same. Discharged in stable condition via Wheelchair to Home. All belongings sent with pt including new wound vac and crutches.
== END 2020-07-03 14:55 | DRG 902 ==
LOC: MS2 15:58
PROVIDERS: Nurse Practitioner Family; ADMIT Internal Medicine; ATTEND Internal Medicine
PROC: 0JBR0ZZ Excision of Left Foot Subcutaneous Tissue and Fascia, Open Approach (ICD-10-PCS; principal; 2020-06-29)
DX: T81.31XA Disruption of external operation (surgical) wound, not elsewhere classified, initial encounter (principal); L03.116 Cellulitis of left lower limb; N17.9 Acute kidney failure, unspecified; E11.628 Type 2 diabetes mellitus with other skin complications; E11.40 Type 2 diabetes mellitus with diabetic neuropathy, unspecified; B19.20 Unspecified viral hepatitis C without hepatic coma; D47.3 Essential (hemorrhagic) thrombocythemia; D64.9 Anemia, unspecified; R42 Dizziness and giddiness; R33.8 Other retention of urine; B95.62 Methicillin resistant Staphylococcus aureus infection as the cause of diseases classified elsewhere; Y83.8 Other surgical procedures as the cause of abnormal reaction of the patient, or of later complication, without mention of misadventure at the time of the procedure; Z90.81 Acquired absence of spleen; Z91.81 History of falling; Z79.4 Long term (current) use of insulin
CPT/HCPCS: J0131; J3370

== ENCOUNTER 2022-04-11 20:19 | Emergency (ER) | payer MEDICARE ==
[~2022-04-11] VITALS: Ht 175.3 cm; Wt 90.0 kg
[2022-04-11] VITALS (11 sets, daily range): BP systolic 157–187; BP diastolic 82–102
[~2022-04-11 20:19] MED LIST changes: +LORTAB5 PO
[2022-04-11 21:06] LABS: HEMATOCRIT 32.5 % (39.0-50.0); IMMATURE GRANULOCYTES 0.6 % (0.0-5.0); MEAN CORPUSCULAR HGB 27.1 pG CALC (26.0-32.0); MEAN CORPUSCULAR HGB CONC 30.8 g/dL CAL (32.0-36.0); NEUT# 10.17 thou/uL (1.82-7.42); RED BLOOD COUNT 3.69 mill/uL (4.70-6.10); RED CELL DISTRI WIDTH 14.3 % (11.5-15.5)
[2022-04-11 21:08] LABS: MEAN CELL VOLUME 88.1 fL CALC (80.0-100.0)
[2022-04-11 21:23] LABS: ALBUMIN 3.1 g/dL (3.2-5.0); ALKALINE PHOSPHATASE 140 u/l (38-126); BILIRUBIN, TOTAL 0.2 mg/dL (0.0-1.4); BUN 32 mg/dL (9-20); BUN/CREATININE RATIO 18 (12-20 (CALC)); CHLORIDE 115 mmol/l (95-108); CREATININE 1.8 mg/dL (0.7-1.3); D-DIMER 1.65 mg/L (0.19-0.60); GFR FOR AFR.AMER. 48 ML/MIN (>=60 (CALC)); GFR OTHER RACES 39 ML/MIN (>=60 (CALC)); INTERNATIONAL NORMALIZED RATIO 0.9 RATIO (0.7-1.3); MAGNESIUM 1.9 mg/dL (1.6-2.3); PROTHROMBIN TIME 9.5 SECONDS (9.0-12.5); SGOT/AST 23 u/l (17-59); SODIUM 136 mmol/l (137-146); TOTAL PROTEIN 6.8 g/dL (6.3-8.2)
[2022-04-11 21:25] LABS: ANION GAP 8 (6-22 (CALC)); CARBON DIOXIDE 17 mmol/l (22-30); POTASSIUM 4.3 mmol/l (3.5-5.1)
[2022-04-11 21:36] LABS: MYOGLOBIN 129 ng/mL (0 - 121)
[2022-04-11 21:54] LABS: TSH, 3RD GENERATION 3.26 uIU/mL (0.47 - 4.68)
[2022-04-12] MEDS ORDERED: METOPROL TAR25 MG PO (00:30)
[2022-04-12] MEDS ORDERED: LYRICA25 MG PO (00:30)
[2022-04-12] MEDS ORDERED: LISINOPRIL10 MG PO (00:30)
[2022-04-12 00:39] LABS: URINE BILIRUBIN - DIPSTICK NEGATIVE (NEGATIVE); URINE BLOOD DIPSTICK TRACE-INTACT (NEGATIVE); URINE COLOR YELLOW; URINE GLUCOSE - DIPSTICK 100 mg/dL (NEGATIVE); URINE KETONE NEGATIVE (NEGATIVE); URINE LEUK ESTERASE NEGATIVE (NEGATIVE); URINE NITRITE - DIPSTICK NEGATIVE (Negative); URINE PH 5.5 (4.5-8.0); URINE PROTEIN - DIPSTICK 100 mg/dL (NEG-TRACE); URINE UROBILINOGEN - DIPSTICK 0.2 E.U./dL (0.2)
[2022-04-12 00:48] LABS: URINE BACTERIA MODERATE hpf; URINE SQUAMOUS EPITHELIAL CELL FEW EPI/hpf (0-FEW)
[2022-04-12] MEDS ORDERED: POTASSIUM CHLO20 ME1 PO (00:58)
[2022-04-12] MEDS ORDERED: LASIX20 MG PO (00:58)
[2022-04-12 01:02] VITALS: BP 168/91
== END 2022-04-12 01:37 | disposition home or self-care (01) ==
LOC: ED 20:19
PROVIDERS: Family Medicine
DX: N39.0 Urinary tract infection, site not specified (principal); R60.0 Localized edema; E11.65 Type 2 diabetes mellitus with hyperglycemia; F15.10 Other stimulant abuse, uncomplicated; I12.9 Hypertensive chronic kidney disease with stage 1 through stage 4 chronic kidney disease, or unspecified chronic kidney disease; E11.22 Type 2 diabetes mellitus with diabetic chronic kidney disease; N18.9 Chronic kidney disease, unspecified; E11.40 Type 2 diabetes mellitus with diabetic neuropathy, unspecified; B19.20 Unspecified viral hepatitis C without hepatic coma; Z79.4 Long term (current) use of insulin; Z20.822 Contact with and (suspected) exposure to COVID-19
CPT/HCPCS: Q9967

== ENCOUNTER 2022-04-19 09:40 | Emergency (ER) | payer MEDICARE, MEDICAID ==
[~2022-04-19] VITALS: Ht 175.3 cm; Wt 90.9 kg
[2022-04-19] VITALS (13 sets, daily range): BP systolic 136–197; BP diastolic 69–99
[~2022-04-19 09:40] MED LIST changes: +LASIX20 MG PO; +LISINOPRIL10 MG PO; +LYRICA25 MG PO; +METOPROL TAR25 MG PO; +POTASSIUM CHLO20 ME1 PO
[2022-04-19 10:48] LABS: HEMATOCRIT 30.2 % (39.0-50.0); HEMOGLOBIN 9.2 g/dl (14.0-18.0); IMMATURE GRANULOCYTES 0.5 % (0.0-5.0); MEAN CELL VOLUME 88.8 fL CALC (80.0-100.0); MEAN CORPUSCULAR HGB 27.1 pG CALC (26.0-32.0); MEAN CORPUSCULAR HGB CONC 30.5 g/dL CAL (32.0-36.0); NEUT# 7.8 thou/uL (1.82-7.42); RED BLOOD COUNT 3.4 mill/uL (4.70-6.10); RED CELL DISTRI WIDTH 14.2 % (11.5-15.5)
[2022-04-19 10:52] LABS: INTERNATIONAL NORMALIZED RATIO 0.9 RATIO (0.7-1.3); PROTHROMBIN TIME 9.8 SECONDS (9.0-12.5)
[2022-04-19 10:53] LABS: ALBUMIN 3.1 g/dL (3.2-5.0); ALKALINE PHOSPHATASE 150 u/l (38-126); BILIRUBIN, TOTAL 0.2 mg/dL (0.0-1.4); BUN 40 mg/dL (9-20); BUN/CREATININE RATIO 21 (12-20 (CALC)); CHLORIDE 114 mmol/l (95-108); CREATININE 1.9 mg/dL (0.7-1.3); ETHYL ALCOHOL 0 mg/dl (0-30); GFR FOR AFR.AMER. 45 ML/MIN (>=60 (CALC)); GFR OTHER RACES 37 ML/MIN (>=60 (CALC)); LIPASE 60 u/l (23-300); POTASSIUM 4.9 mmol/l (3.5-5.1); SGOT/AST 29 u/l (17-59); SODIUM 139 mmol/l (137-146); TOTAL PROTEIN 6.6 g/dL (6.3-8.2)
[2022-04-19 11:14] LABS: URINE BILIRUBIN - DIPSTICK NEGATIVE (NEGATIVE); URINE BLOOD DIPSTICK SMALL (NEGATIVE); URINE COLOR YELLOW; URINE GLUCOSE - DIPSTICK 250 mg/dL (NEGATIVE); URINE KETONE NEGATIVE (NEGATIVE); URINE LEUK ESTERASE NEGATIVE (NEGATIVE); URINE PH 6.5 (4.5-8.0); URINE PROTEIN - DIPSTICK >=300 mg/dL (NEG-TRACE); URINE UROBILINOGEN - DIPSTICK 0.2 E.U./dL (0.2)
[2022-04-19 11:28] LABS: URINE EPITHELIAL CELLS FEW EPI/hpf (0-FEW); URINE MUCUS MODERATE hpf (NONE-FEW); URINE NITRITE - DIPSTICK NEGATIVE (Negative); URINE RBC 0-2 RBC/hpf (0-5)
[2022-04-19 11:29] LABS: ANION GAP 9 (6-22 (CALC)); CARBON DIOXIDE 21 mmol/l (22-30)
[2022-04-19] MEDS ORDERED: VENTOLIN HFA IN (12:03)
[2022-04-19] MEDS ORDERED: ZPAK PO (12:03)
--- NOTE | 2022-04-21 16:52 | NUR ---
PRELIMINARY RESULTS GIVEN TO . CONTACTED THE PATIENTS SISTER WHO REPORTS THE PATIENT IS FEELING WELL, ADVISED TO BRING THE PATIENT IN SOON POSSIBLE.
== END 2022-04-19 12:40 | disposition home or self-care (01) ==
LOC: ED 09:40
DX: J18.9 Pneumonia, unspecified organism (principal); I12.9 Hypertensive chronic kidney disease with stage 1 through stage 4 chronic kidney disease, or unspecified chronic kidney disease; E11.22 Type 2 diabetes mellitus with diabetic chronic kidney disease; N18.30 Chronic kidney disease, stage 3 unspecified; R78.81 Bacteremia; D64.9 Anemia, unspecified; E11.65 Type 2 diabetes mellitus with hyperglycemia; E11.40 Type 2 diabetes mellitus with diabetic neuropathy, unspecified; B19.20 Unspecified viral hepatitis C without hepatic coma; F15.10 Other stimulant abuse, uncomplicated; Z79.4 Long term (current) use of insulin; Z20.822 Contact with and (suspected) exposure to COVID-19

== ENCOUNTER 2022-04-21 20:10 | Emergency (ER) | payer MEDICARE, MEDICAID ==
[~2022-04-21] VITALS: Ht 175.3 cm; Wt 91.0 kg
[~2022-04-21 20:10] MED LIST changes: +VENTOLIN HFA IN; +ZPAK PO
[2022-04-21 20:40] VITALS: BP 149/82
[2022-04-21 20:45] VITALS: BP 149/85
[2022-04-21 21:29] LABS: HEMATOCRIT 30.6 % (39.0-50.0); HEMOGLOBIN 9.3 g/dl (14.0-18.0); IMMATURE GRANULOCYTES 0.6 % (0.0-5.0); MEAN CELL VOLUME 89.2 fL CALC (80.0-100.0); MEAN CORPUSCULAR HGB 27.1 pG CALC (26.0-32.0); MEAN CORPUSCULAR HGB CONC 30.4 g/dL CAL (32.0-36.0); NEUT# 6.51 thou/uL (1.82-7.42); RED BLOOD COUNT 3.43 mill/uL (4.70-6.10); RED CELL DISTRI WIDTH 14.1 % (11.5-15.5)
[2022-04-21 21:46] LABS: ALBUMIN 3.3 g/dL (3.2-5.0); BILIRUBIN, TOTAL 0.2 mg/dL (0.0-1.4); CREATININE 2.4 mg/dL (0.7-1.3)
[2022-04-21 21:48] LABS: POTASSIUM 5.4 mmol/l (3.5-5.1)
[2022-04-21 23:16] VITALS: BP 159/88
[2022-04-22 01:10] VITALS: BP 148/80
== END 2022-04-22 01:10 ==
LOC: ED 20:10 → ED-I 20:50 → ED 04-22 01:10
PROVIDERS: Family Medicine
DX: R78.81 Bacteremia (principal); I11.0 Hypertensive heart disease with heart failure; I50.9 Heart failure, unspecified; E11.40 Type 2 diabetes mellitus with diabetic neuropathy, unspecified; F15.10 Other stimulant abuse, uncomplicated; B19.20 Unspecified viral hepatitis C without hepatic coma; Z79.4 Long term (current) use of insulin; Z20.822 Contact with and (suspected) exposure to COVID-19